=== PATIENT | male | born 1985 | race Caucasian/White ===

== ENCOUNTER → 2019-10-11 10:42 | Outpatient (BNVA) | payer SELFPAY | PROVIDERS: Family Provider Nurse Practitioner; PCP Nurse Practitioner; Visit Provider Nurse Practitioner Family | DX: R05 Cough (principal); J01.40 Acute pansinusitis, unspecified; J40 Bronchitis, not specified as acute or chronic | CPT/HCPCS: 87804 ==

== ENCOUNTER → 2019-11-29 10:57 | Outpatient (BNVA) | payer SELFPAY | PROVIDERS: Family Provider Nurse Practitioner; PCP Nurse Practitioner; Visit Provider Nurse Practitioner Family | DX: S50.10XA Contusion of unspecified forearm, initial encounter (principal) | CPT/HCPCS: 73090 ==

== ENCOUNTER 2019-12-21 18:06 | Emergency (ER) | payer SELFPAY ==
[2019-12-21 18:34] VITALS: BP 116/68; PULSE 69; RESP 14; TEMP 36.5; O2SAT 98; BMI 24.9
--- NOTE | 2019-12-21 18:55 | XR_ITS ---
WS: [id number] FOOT LEFT TECHNIQUE: 3 views of the left foot CLINICAL INFORMATION: injury COMPARISON: None. FINDINGS: No evidence of acute fracture or dislocation. Normal tarsal metatarsal alignment. Normal calcaneus. N ormal visualized talar dome. No acute findings. XR/XR foot LT min 3V* [id number] IMPRESSION: Normal left foot.
--- NOTE | 2019-12-21 20:48 | ED_ITS ---
HPI - Extremity Problem General: Chief complaint: Extremity Injury, Lower Stated complaint: foot swollen Time Seen by Provider: 12/21/19 20:22 History of Present Illness: HPI Narrative: Patient is a 34-year-old gentleman presenting with left foot pain. He describes pain at the junction of where his toes meet his foot. He has pain with weightbearing and with movement of the toes. This is been going on pretty severely for about a week. He does a lot of standing and walking at work and did jump down from a piece of equipment the day before the pain started but says that is not really anything unusual for him to do. He feels like it swollen. Even with a lot of padding in his shoes or boots he still has significant pain with walking. He has some similar pain on the right foot but it is not nearly as severe. MD Complaint: joint pain Onset (ago): week(s) (1) Pain Consistency: constant Location: left Severity scale (1-10): 8 Quality: sharp Radiation: none Relieving factors: rest Exacerbating factors: weight bearing, walking and palpation Associated symptoms: Deny rash Review of Systems Musc: Reports: extremity pain; Denies: extremity swelling Skin/Breast: Denies: rash Neuro: Denies: numbness in extremities PFSH ED PFSH: Family History Other Cancer Heart disease Social History Smoking and tobacco status: never smoked Alcohol intake: current Alcohol intake frequency: few times a week Physical Exam Const: COMMON NORMALS: no acute distress, average body habitus and healthy appearing Neck/C-Spine: COMMON NORMALS: supple Resp: COMMON NORMALS: normal respiratory effort and No use of accessory muscles Cardio: COMMON NORMALS: regular rate RATE: regular rate PERIPHERAL PULSES: dorsalis pedis present (Left) Extremity: LEFT LOWER EXTREMITY: Yes foot & digits (Tenderness over the second and third metatarsal phalangeal joints. Tenderness both on the dorsal and plantar sides. No deformity, heat, erythema. Pain also with range of motion of the toes) Neuro: COMMON NORMALS: no sensory deficits noted Course ED course: Patient with foot pain. He was concerned about gout but I clinically do not think this is gout. Could be a Burrows's neuroma or arthritis in the joint. We will have him nonweightbearing, put him in an Ortho boot and have him follow-up with podiatry. Vital Signs: Vital signs: Vital Signs Temperature 97.7 F 12/21/19 18:34 Pulse Rate 69 12/21/19 18:34 Respiratory Rate 16 12/21/19 21:08 Blood Pressure 116/68 12/21/19 18:34 Pulse Oximetry 99 12/21/19 21:08 Discharge Plan Discharge Patient Disposition: Home, Self-Care Clinical Impression: Acute foot pain Qualifiers: Laterality: left Qualified Code(s): M79.672 - Pain in left foot Condition: Stable Prescriptions: No Action Multiple Vitamins Tablet 1 tab PO DAILY RF: 0 Tylenol 325 mg Tablet 325 mg PO QID PRN (Reason: Pain) RF: 0 Advil 200 mg Tablet 200 mg PO Q6H PRN (Reason: Pain) RF: 0 Discharge Orders: Discharge Order (Routine); Ordered 12/21/19 Ordered By: Rosa M Clinton Referrals: Kennedy Saeed DPM [Physician] - 4-7 days Deana Wakefield FNP [Primary Care Provider] - Discharge Diet: Usual diet Discharge Activity: Limit activity as instructed Patient Instructions: Arthralgia (ED) Activity Restrictions/Additional Instructions: Limit weight bearing on the affected foot. Follow up with Dr. Saeed for further evaluation and treatment. Stand Alone Forms: Work/School Release Discharge Date/Time: 12/21/19 21:11 Coding Level of Care Code ED Director [employer] Operations for Chg Fwd Exam Detailed
[2019-12-21 21:08] VITALS: RESP 16; O2SAT 99
--- NOTE | 2019-12-22 10:02 | DCPLANNER ---
care process manager had message to schedule a follow up appointment for patient with ortho. care process manager called the ortho clinic, spoke with Pat, gave clinic patients information. care process manager was told that patients information would be printed and reviewed. Clinic will call nurse case management and patient with appointment information.
--- NOTE | 2019-12-23 14:50 | DCPLANNER ---
Addendum entered by Deloris Rasmussen 01/07/20 14:26: Patient attended appointment scheduled for 12.24.[address] Saeed. Original Note: Patient has a follow up appointment scheduled for Tuesday, December 24, 2019 at 3:[address] Saeed. Clinic will call patient with appointment information.
== END 2019-12-21 21:11 | disposition home or self-care (01) ==
PROVIDERS: Emergency Provider Emergency Medicine; PCP Nurse Practitioner
DX: M79.672 Pain in left foot (principal)
CPT/HCPCS: 12345; 73630; 99281; 99283

== ENCOUNTER → 2019-12-28 14:29 | Outpatient (BNVA) | payer SELFPAY | PROVIDERS: PCP Nurse Practitioner; Referring Provider Emergency Medicine; Visit Provider Podiatrist Foot & Ankle Surgery | DX: M79.671 Pain in right foot (principal); M79.672 Pain in left foot | CPT/HCPCS: 73630 ==

== ENCOUNTER 2020-02-08 16:11 | Emergency (ER) | payer SELFPAY ==
[2020-02-08 16:13] VITALS: BP 116/68; PULSE 58; RESP 18; TEMP 36.8; O2SAT 97; BMI 26.4
[2020-02-08 16:56] LABS: Basophils # 0.1 10^3/uL (0.0-0.1); Basophils % 0.6 %; Eosinophils # 0.4 10^3/uL (0.0-0.8); Eosinophils % 5.2 %; Hematocrit 44.5 % (42.0-52.0); Hemoglobin 14.6 g/dL (11.7-16.6); Lymphocytes # 2.3 10^3/uL (0.8-4.8); Lymphocytes % 28.3 %; Mean Corpuscular HGB Conc 32.8 g/dL (30.0-36.0); Mean Corpuscular Hemoglobin 28.8 pg (28.0-34.0); Mean Corpuscular Volume 87.8 fL (80-94); Mean Platelet Volume 9.9 fL (7.4-10.4); Monocytes # 0.9 10^3/uL (0.2-0.9); Monocytes % 11.6 %; Neutrophils # 4.3 10^3/uL (1.8-7.7); Neutrophils % 53.6 %; Nucleated Red Blood Cells % 0 %; Platelet Count 315 10^3/cmm (130-400); Red Blood Count 5.07 10^6/uL (4.1-5.3); White Blood Count 8.1 10^3/uL (4.0-10.0)
[2020-02-08 17:03] VITALS: RESP 18
--- NOTE | 2020-02-08 17:16 | ED_ITS ---
HPI - General Adult General: Chief complaint: General Medical Stated complaint: Tired ALL THE TIME Time Seen by Provider: 02/08/20 16:42 Source: patient Mode of arrival: ambulatory Limitations: no limitations History of Present Illness: HPI narrative: Patient is a 34-year-old male who has a history of tickborne illness 1 year ago. He states that over the last week he has been having increasing weakness with just no energy. He feels like he did a year ago. He denies any recent tick bites. He denies any fever. He denies any pain anywhere. Onset (ago): week(s) Associated symptoms: Deny chest pain, dyspnea, nausea, rash or vomiting Review of Systems Const: Denies: fever(s), chills, body aches or change in appetite Eyes: Denies: blurry vision or eye discomfort ENMT: Denies: throat pain or dental pain Card: Denies: chest pain Resp: Denies: dyspnea GI: Denies: abdominal pain, nausea, vomiting or diarrhea : Denies: dysuria Musc: Denies: neck pain or back pain Skin/Breast: Denies: rash Neuro: Reports: weakness in extremities Psych: Denies: depression Jovani/Lymph: Denies: easy bruising All/Imm: Denies: urticaria PFSH ED PFSH: Family History Other Cancer Heart disease Social History Smoking and tobacco status: never smoked Alcohol intake: current Alcohol intake frequency: few times a week Physical Exam Const: COMMON NORMALS: no acute distress, patient oriented x3 and healthy appearing HENMT: COMMON NORMALS: normocephalic and atraumatic HEAD & SCALP: normocephalic and atraumatic Eye: COMMON NORMALS: Equal, round and reactive pupils present and EOMs intact bilaterally PUPIL: Yes Equal, round and reactive pupils present Neck/C-Spine: COMMON NORMALS: full ROM and supple Chest: COMMONS NORMALS: normal inspection of the chest and normal palpation of entire chest wall Resp: COMMON NORMALS: normal respiratory effort, No retractions, No use of accessory muscles and clear to auscultation bilaterally AUSCULTATION: clear to auscultation bilaterally Cardio: COMMON NORMALS: regular rate, regular rhythm and No murmurs present (Cardio) RATE: regular rate RHYTHM: regular rhythm GI: COMMON NORMALS: Normal to inspection, nondistended, normoactive bowel sounds present, Soft to palpation, non-tender and no masses PALPATION: Yes Soft to palpation Extremity: COMMON NORMALS: normal to inspection and full ROM Neuro: COMMON NORMALS: patient oriented x3, moves all extremities and no focal motor deficits Psych: COMMON NORMALS: mental status grossly normal, Normal thought process present and cooperative THOUGHT PROCESS: Normal thought process present Skin: COMMON NORMALS: no rashes or lesions noted and no wounds GENERAL SKIN EXAM: no rashes or lesions noted Course Vital Signs: Vital signs: Vital Signs Temperature 98.2 F 02/08/20 16:13 Pulse Rate 58 L 02/08/20 16:13 Respiratory Rate 18 02/08/20 17:03 Blood Pressure 116/68 02/08/20 16:13 Pulse Oximetry 97 02/08/20 16:13 MDM - General Adult MDM Narrative: Medical decision making narrative: Patient presents here with generalized weakness we will start him on doxycycline as he has sick fever in the past. Tick panel is pending. Lab work here is otherwise normal. Patient is stable for discharge and return if worsening. Lab Data: Labs: Lab Results 02/08/20 02/08/20 Range/Units 16:48 16:48 WBC 8.1 (4.0-10.0) 10^3/ uL RBC 5.07 (4.1-5.3) 10^6/u L Hgb 14.6 (11.7-16.6) g/dL Hct 44.5 (42.0-52.0) % MCV 87.8 (80-94) fL MCH 28.8 (28.0-34.0) pg MCHC 32.8 (30.0-36.0) g/dL RDW 13.0 (12.1-15.1) % Plt Count 315 (130-400) 10^3/c mm MPV 9.9 (7.4-10.4) fL Neut % (Auto) 53.6 % Lymph % (Auto) 28.3 % [place] % (Auto) 11.6 % Eos % (Auto) 5.2 % Baso % (Auto) 0.6 % Neut # (Auto) 4.3 (1.8-7.7) 10^3/u L Lymph # (Auto) 2.3 (0.8-4.8) 10^3/u L [place] # (Auto) 0.9 (0.2-0.9) 10^3/u L Eos # (Auto) 0.4 (0.0-0.8) 10^3/u L Baso # (Auto) 0.1 (0.0-0.1) 10^3/u L Nucleated RBC % (a uto) 0 % Nucleated RBCs # 0.0 /100WBC Sodium 139 (136-145) mmol/L Potassium 4.4 (3.5-5.1) mmol/L Chloride 104 (98-107) mmol/L Carbon Dioxide 25 (22-29) mmol/L Anion Gap 14.4 (5-19) BUN 14 (6-20) mg/dL Creatinine 0.9 (0.7-1.2) mg/dL GFR Calculation 97.8 (90-130) mL/min Glucose 92 (65-115) mg/dL Calculated Osmolal ity 284 L (285-295) mOsm/k g Calcium 9.5 (8.5-10.5) mg/dL Total Bilirubin 0.2 (0.15-1.2) mg/dL AST 24 (0-40) U/L ALT 27 (0-41) U/L Alkaline Phosphata se 62 (40-130) IU/L Total Protein 7.0 (6.6-8.7) g/dL Albumin 4.4 (3.5-5.2) g/dL Globulin 2.6 (1.3-4.6) g/dL TSH 1.66 (0.27-4.20) uIU/ mL Discharge Plan Discharge Patient Disposition: Home, Self-Care Clinical Impression: Weakness Condition: Stable Prescriptions: New doxycycline hyclate 100 mg capsule 100 mg PO BID 14 Days Qty: 28 RF: 0 No Action multivitamin [Multiple Vitamins] Tablet 1 tab PO DAILY RF: 0 Discharge Orders: Discharge Order (Routine); Ordered 02/08/20 Ordered By: Justin Rudd Referrals: Deana Wakefield FNP [Primary Care Provider] - Discharge Diet: Advance as tolerated Discharge Activity: Resume usual activity Patient Instructions: Weakness (ED) Coding Level of Care Code ED Internal Medicine Veterinary Technician for g Fwd Exam Comprehensive
[2020-02-08 17:33] LABS: Alanine Aminotransferase 27 U/L (0-41); Albumin Level 4.4 g/dL (3.5-5.2); Alkaline Phosphatase 62 IU/L (40-130); Anion Gap 14.4 (5-19); Aspartate Amino Transferase 24 U/L (0-40); Blood Urea Nitrogen 14 mg/dL (6-20); Calcium 9.5 mg/dL (8.5-10.5); Carbon Dioxide 25 mmol/L (22-29); Chloride 104 mmol/L (98-107); Globulin 2.6 g/dL (1.3-4.6); Glomerular Filtration Rate 97.8 mL/min (90-130); Glucose 92 mg/dL (65-115); Osmolality Calculated 284 mOsm/kg (285-295); Potassium 4.4 mmol/L (3.5-5.1); Sodium 139 mmol/L (136-145); Thyroid Stimulating Hormone 1.66 uIU/mL (0.27-4.20); Total Bilirubin 0.2 mg/dL (0.15-1.2)
[2020-02-08 18:19] VITALS: RESP 18; TEMP 36.8; O2SAT 97
[2020-02-10 12:55] LABS: Lyme AB Screen <0.90 index
[2020-02-12 17:26] LABS: RMSF IGG NOT DETECTED; RMSF IGM NOT DETECTED
[2020-02-12 22:40] LABS: E. Chaffeensis AB IGG <1:64; E. Chaffeensis AB IGM <1:20
== END 2020-02-08 18:20 | disposition home or self-care (01) ==
PROVIDERS: Emergency Provider Emergency Medicine; PCP Nurse Practitioner
DX: R53.1 Weakness (principal)
CPT/HCPCS: 12345; 36415; 80053; 84443; 85025; 86618; 86666; 86757; 99281; 99282

== ENCOUNTER 2020-02-28 10:26 | Emergency (ER) | payer SELFPAY ==
[2020-02-28 10:29] VITALS: BP 153/78; PULSE 79; RESP 20; O2SAT 99; BMI 25.0
--- NOTE | 2020-02-28 10:56 | W.ED.NECK ---
HPI - Neck Pain/Injury General: Chief Complaint: Neck Pain/Injury Stated Complaint: NECK AND BACK PAIN, FACE IS NUMB Time Seen by Provider: 02/28/20 10:54 History of Present Illness: HPI Narrative: Patient is a 34-year-old male who comes to the ED with neck pain. Patient says he has had this pain for the past couple months and it continues to get worse. He says in the last couple days it is gotten considerably worse and he can hardly sleep. Today patient went to a chiropractor and got a treatment. After treatment patient's pain got worse. The pain is described as sharp pain on the cervical spine of the neck. He rates the pain currently about a 9 out of 10. Any pressure on the neck causes pain. He says he has pain that radiates down the left arm and he also has some left sided facial numbness that has been episodic over the past week.. He denies any head trauma or injury to cause acute neck pain. Denies weakness or loss of sensation to extremities. Associated symptoms: Reports nausea; Denies headache(s) Review of Systems Const: Denies: fever(s), chills or fatigue Eyes: Denies: change in vision or eye discomfort ENMT: Denies: throat pain, odynophagia, nasal discharge or nasal congestion Card: Denies: chest pain, palpitations, edema, swelling of feet/ankles, dyspnea on exertion or orthopnea Resp: Denies: dyspnea, productive cough or non-productive cough GI: Reports: nausea; Denies: abdominal pain, vomiting, diarrhea, constipation or hematochezia : Denies: flank pain, difficulty urinating, dysuria or hematuria Musc: Reports: neck pain; Denies: back pain or extremity swelling Skin/Breast: Denies: rash or new lesions Neuro: Reports: sensory changes (Patient states on left side of his face he is having some numbness.); Denies: headache(s), numbness in extremities or weakness in extremities PFSH ED PFSH: Family History Other Cancer Heart disease Social History Smoking and tobacco status: never smoked Alcohol intake: current Alcohol intake frequency: few times a week Physical Exam Const: COMMON NORMALS: no acute distress, patient oriented x3, healthy appearing and alert GENERAL APPEARANCE: cooperative and comfortable HENMT: COMMON NORMALS: normocephalic HEAD & SCALP: normocephalic MOUTH: Normal oral and palatal mucosa present THROAT: posterior oropharynx normal and uvula midline Eye: COMMON NORMALS: Equal, round and reactive pupils present PUPIL: Yes Equal, round and reactive pupils present Neck/C-Spine: COMMON NORMALS: supple GENERAL: Yes normal visual inspection CERVICAL SPINE: Yes pain with cervical ROM with anterior flexion and with extension, Yes Cervical spine tenderness C5, C6 and C7 and Yes Paracervical muscle tenderness bilateral Resp: COMMON NORMALS: normal respiratory effort, No retractions, No use of accessory muscles and clear to auscultation bilaterally AUSCULTATION: clear to auscultation bilaterally Cardio: COMMON NORMALS: regular rate, regular rhythm, S1 normal heart sound present, S2 normal heart sound present, No gallops present (Cardio), No clicks present (Cardio), No murmurs present (Cardio) and Peripheral pulses 2+ throughout RATE: regular rate RHYTHM: regular rhythm HEART SOUNDS: S1 normal heart sound present and S2 normal heart sound present PERIPHERAL PULSES: Peripheral pulses 2+ throughout GI: COMMON NORMALS: Normal to inspection, nondistended, normoactive bowel sounds present, Soft to palpation, non-tender and no masses PALPATION: Yes Soft to palpation : COMMON NORMALS: Yes no CVA tenderness BLADDER/KIDNEY EXAM: Yes no CVA tenderness Back/Pelvis: COMMON NORMALS: no CVA tenderness Extremity: COMMON NORMALS: normal to inspection and no pedal edema Neuro: COMMON NORMALS: patient oriented x3, moves all extremities, no focal motor deficits and gait normal SENSORIUM/ORIENTATION: Yes alert CRANIAL NERVES: Yes CN normal except as noted and Yes CN V (trigeminal) CN V laterality: left CN V left: all branch sensations abnormal (Change in sensation to soft touch.) COORDINATION/BALANCE: [id number] test normal GAIT: Yes Normal gait present COORDINATION: [id number] test normal Skin: COMMON NORMALS: no rashes or lesions noted GENERAL SKIN EXAM: no rashes or lesions noted and dry skin Course Vital Signs: Vital signs: Vital Signs Pulse Rate 50 L 02/28/20 13:36 Respiratory Rate 18 02/28/20 13:36 Blood Pressure 112/73 02/28/20 13:36 Pulse Oximetry 98 02/28/20 13:36 MDM - Neck Pain/Injury MDM Narrative: Medical decision making narrative: Patient is a 34-year-old male who comes to the ED with cervical neck pain with radiating pain down left arm. He is also complaining of episodic left sided facial numbness. His symptoms started over a week ago. Neurological exam was completely normal except for patient stating he had a change in sensation on left side of face to soft touch. Patient had pain upon anterior extension of flexion of cervical spine and also had cervical spine tenderness and bilateral paracervical muscle tenderness. CT of the head was normal and showed no acute findings. CT of the cervical spine- Mild disc bulging C5-C6 with a tiny shallow central protrusion. Slight effacement of ventral thecal sac. Mild left foraminal narrowing. Patient's pain improved with hydrocodone and Toradol while here in the ED. Patient was discharged with a prescription of ibuprofen and Medrol Dosepak. Patient also was requesting PCP referral so I placed an order with case management for the referral. Patient given return to ED precautions. Patient understood and agreed with plan. Imaging Data^: CT Head: Attestation: I personally reviewed and interpreted this imaging study as follows: Radiologist's impression: [address] [place] [address] CT Scan Report Signed Patient: Wu Brown Unit #: [id number] : 1985 Age/Sex: 34 / M ADM Date: 02/28/20 Loc: ER Room/Bed: Attending Dr: Ordering Provider/Ordering MD: Jace Newton Date of Service: 02/28/20 Procedure(s): CT head wo con* [id number] Accession Number(s): [id number] Report Number: [id number] WS: [id number] CT HEAD TECHNIQUE: Noncontrast CT of the head obtained from the skullbase to the vertex. CLINICAL INFORMATION: facial numbness COMPARISON: 14,014 DLP: 893.[address] scans at [facility] use at least one of these dose optimization techniques: automated exposure control; mA and/or kV adjustment per patient size (includes targeted exams where dose is matched to clinical indication); or iterative reconstruction. FINDINGS: No evidence of intracranial hemorrhage or mass effect. Ventricular system and basal cisterns are patent. No extra-axial fluid collections. No evidence of mass or mass effect. Normal pond-white differentiation. Incidental megacisterna magna unchanged. Paranasal sinuses and mastoid air cells are well aerated. .Normal visualized soft tissues. Notified LISE Buchanan at 02/28/2020 1:[address]/CT head wo con* [id number] IMPRESSION: 1. No evidence of intracranial hemorrhage or mass effect. 2. Normal pond-white differentiation. 3. Incidental megacisterna magna unchanged. 4. No acute intracranial findings. Dictated By: Warren Snowden MD Signed By: Warren Snowden MD Signed Date/Time: 02/28/20 1320 DD/ [address]: Attestation: I personally reviewed and interpreted this imaging study as follows: Radiologist's impression: [place] [address] CT Scan Report Signed Patient: Wu Brown Unit #: [id number] : 1985 Age/Sex: 34 / M ADM Date: 02/28/20 Loc: ER Room/Bed: Attending Dr: Ordering Provider/Ordering MD: Jace Newton Date of Service: 02/28/20 Procedure(s): CT cervical spin wo con* [id number] Accession Number(s): [id number] Report Number: [id number] WS: [id number] CT CERVICAL SPINE TECHNIQUE: Noncontrast CT of the cervical spine with coronal and sagittal reformatted images. CLINICAL INFORMATION: c-spine tender with pain radiating to left arm COMPARISON: None. DLP: 923.[address] scans at [facility] use at least one of these dose optimization techniques: automated exposure control; mA and/or kV adjustment per patient size (includes targeted exams where dose is matched to clinical indication); or iterative reconstruction. FINDINGS: Straightening of the normal cervical lordosis. No acute fractures. No high-grade central canal stenosis. C2-C3: Normal. C3-C4: Normal. C4-C5: Minimal disc bulging. Mild left and no significant right foraminal narrowing. Spinal canal is patent. C5-C6: Tiny central disc protrusion. Slight effacement of ventral thecal sac. Mild left foraminal narrowing. Mild facet arthropathy. C6-C7: Images this level somewhat degraded due to beam hardening artifact. Spinal canal and foramen appear patent. C7-T1: No significant disc bulging. Spinal canal and foramen are patent. Visualized posterior nasopharynx: Normal. Prevertebral soft tissues: Normal. Notified LISE Buchanan at 02/28/2020 1:[address]/CT cervical spin wo con* [id number] IMPRESSION: 1. Straightening of the normal cervical lordosis. No acute fractures. 2. Mild disc bulging C5-C6 with a tiny shallow central protrusion. Slight effacement of ventral thecal sac. Mild left foraminal narrowing. 3. No other acute findings. Dictated By: Warren Snowden MD Signed By: Warren Snowden MD Signed Date/Time: 02/28/20 132 DD/ 1320 Discharge Plan Discharge Patient Disposition: Home Clinical Impression: Cervical radicular pain Condition: Stable Prescriptions: New Medrol (Vern) 4 mg tablets,dose pack See Rx Instructions .ROUTE .COMPLEX Qty: 21 RF: 0 ibuprofen 600 mg tablet 600 mg PO Q8H PRN (Reason: pain) Qty: 30 RF: 0 No Action multivitamin [Multiple Vitamins] Tablet 1 tab PO DAILY RF: 0 Discharge Orders: Discharge Order (Routine); Ordered 02/28/20 Ordered By: Jace Newton Referrals: Deana Wakefield FNP [Primary Care Provider] - Discharge Diet: Regular Discharge Activity: Increase activity as tolerated Patient Instructions: Cervical Radiculopathy (ED) Activity Restrictions/Additional Instructions: Follow-up with medical provider as directed. Case management or PCP office should be contacting you in the next several days to set up an appointment. Take medications as prescribed. Apply ice on neck to help with symptoms. Return to the ER or your medical provider if condition worsens. Please read and understand discharge instructions. If any questions, please ask. Discharge Date/Time: 02/28/20 13:36 Coding Level of Care Code ED Pathology Transcriptionist for Chg Fwd Exam Comprehensive
--- NOTE | 2020-02-28 11:31 | CT_ITS ---
WS: [id number] CT CERVICAL SPINE TECHNIQUE: Noncontrast CT of the cervical spine with coronal and sagittal reformatted images. CLINICAL INFORMATION: c-spine tender with pain radiating to left arm COMPARISON: None. DLP: 923.[address] scans at [facility] use at least one of these dose optimization techniques: automat ed exposure control; mA and/or kV adjustment per patient size (includes targeted exams where dose is matched to clinical indication); or iterative reconstruction. FINDINGS: Straightening of the normal cervical lordosis. No acute fractures. No high-grade central canal stenos is. C2-C3: Normal. C3-C4: Normal. C4-C5: Minimal disc bulging. Mild left and no significant right foraminal narrowing. Spinal canal is patent. C5-C6: Tiny central disc protrusion. Slight effacement of ventral thecal sac. Mild left foraminal byron rowing. Mild facet arthropathy. C6-C7: Images this level somewhat degraded due to beam hardening artifact. Spinal canal and foramen a ppear patent. C7-T1: No significant disc bulging. Spinal canal and foramen are patent. Visualized posterior nasopharynx: Normal. Prevertebral soft tissues: Normal. Notified LISE Buchanan at 02/28/2020 1:[address]/CT cervical spin wo con* [id number] IMPRESSION: 1. Straightening of the normal cervical lordosis. No acute fractures. 2. Mild disc bulging C5-C6 with a tiny shallow central protrusion. Slight effa cement of ventral thecal sac. Mild left foraminal narrowing. 3. No other acute findings.
[2020-02-28 11:33] VITALS: BP 127/77; PULSE 67; RESP 14; O2SAT 96
[2020-02-28] MEDS: ketorolac 60 mg/2 mL INJ IM (11:37)
[2020-02-28] MEDS: HYDROcodone-acetaminophen 7.5-325 mg Tablet 1 TAB PO (11:37)
--- NOTE | 2020-02-28 11:40 | CT_ITS ---
WS: [id number] CT HEAD TECHNIQUE: Noncontrast CT of the head obtained from the skullbase to the vertex. CLINICAL INFORMATION: facial numbness COMPARISON: 6 14,014 DLP: 893.[address] scans at [facility] use at least one of these dose optimization techniques: automat ed exposure control; mA and/or kV adjustment per patient size (includes targeted exams where dose is matched to clinical indication); or iterative reconstruction. FINDINGS: No evidence of intracranial hemorrhage or mass effect. Ventricular system and basal cisterns are sosa nt. No extra-axial fluid collections. No evidence of mass or mass effect. Normal pond-white different iation. Incidental megacisterna magna unchanged. Paranasal sinuses and mastoid air cells are well aerated. .Normal visualized soft tissues. Notified LISE Buchanan at 02/28/2020 1:[address]/CT head wo con* [id number] IMPRESSION: 1. No evidence of intracranial hemorrhage or mass effect. 2. Normal pond-white differentiation. 3. Incidental megacisterna magna unchanged. 4. No acute intracranial findings.
[2020-02-28 13:00] VITALS: RESP 18
[2020-02-28 13:35] VITALS: RESP 18
[2020-02-28] MEDS: ondansetron 2 mg/ML SDV 2 mL 4 MG IM (13:35)
[2020-02-28] MEDS: predniSONE 20 mg Tablet 60 MG PO (13:35)
[2020-02-28] MEDS: morphine 4 mg/mL SDV 1 mL IM (13:35)
[2020-02-28 13:36] VITALS: BP 112/73; PULSE 50; RESP 18; O2SAT 98
--- NOTE | 2020-02-28 15:16 | PC.SOCIAL ---
Referral for PCP received from ED provider. Called patient and he is okay with C provider did not have a preference. Called Dr Willett office and appt scheduled for 03/23/2020 1:30pm. Updated patient and he prefers this nurse send date/ time of appt with phone number in the mail along with financial assistance paperwork. On paper that has appt asked that he call clinic prior to appt to see if her clinic location has changed since this will happen in the near future.
--- NOTE | 2020-05-04 16:15 | DCPLANNER ---
Patient had a follow up appointment scheduled for 03.23.20 - patient did not attend appointment.
== END 2020-02-28 13:36 | disposition home or self-care (01) ==
PROVIDERS: Emergency Provider Physician Assistant; PCP Nurse Practitioner
DX: M54.12 Radiculopathy, cervical region (principal)
CPT/HCPCS: 12345; 70450; 72125; 96372; 99281; 99283; J1885; J2270; J2405; J7512

== ENCOUNTER 2020-03-06 05:15 | Emergency (ER) | payer SELFPAY ==
[2020-03-06] VITALS (8 sets, daily range): BP systolic 106–138; BP diastolic 60–86; PULSE 43–72; RESP 12–24; TEMP 36.6; O2SAT 96–99; BMI 25.0
--- NOTE | 2020-03-06 05:58 | W.ED.ABDPA2 ---
HPI - Abdominal Pain General: Chief Complaint: Abdominal Pain Stated Complaint: abd pain Time Seen by Provider: 03/06/20 05:54 History of Present Illness: HPI narrative: 34-year-old male with complaint of abdominal pain began last night. Patient has severe epigastric pain he is not had any hematemesis. He does have blood in his stools but that is been ongoing problems small streaks of blood he has had this for a year, he has been evaluated for by physician. To be from rectal irritation or tears he has not had a colonoscopy for this. He does have history of severe heartburn he is on omeprazole but states that does not adequately control his symptoms. He has not had an EGD or further evaluation of his reflux in the past. No previous abdominal surgeries. MD elicited complaint: abdominal pain Pertinent past history: other (Gastroesophageal reflux disease) Onset (ago): hour(s) Pain Consistency: constant Location: Epigastric Severity: severe Quality: cramping and aching Radiation: none Migration to: no migration Exacerbating factors: eating Relieving factors: nothing Associated Symptoms: Reports change in stool character (Patient reports recent onset of mucousy semi-formed stool), GI cramping, dyspepsia, heartburn, hematochezia (Small streaks this is chronic), nausea and poor appetite; Denies coffee ground emesis, diarrhea, dysuria, fever(s), hematuria, hematemesis, melena, syncope and vomiting Treatments prior to arrival: other (Omeprazole) Review of Systems Const: Denies: fever(s) ENMT: Denies: throat pain, ear or mastoid pain, nasal discharge or nasal congestion Card: Denies: syncope Resp: Denies: dyspnea, productive cough or non-productive cough GI: Reports: nausea, heartburn, GI cramping, change in stool character (Patient reports recent onset of mucousy semi-formed stool) and hematochezia (Small streaks this is chronic); Denies: vomiting, hematemesis, coffee ground emesis, diarrhea or melena : Denies: dysuria or hematuria Skin/Breast: Denies: rash or pruritus PFSH ED PFSH: Medical History Asthma Cervical radicular pain Surgical History History of surgery on extremity History of surgery on upper extremity Family History Other Cancer Heart disease Social History Smoking and tobacco status: current every day smoker cigarettes Packs smoked per day: 1.5 Years cigarettes smoked: 14 Alcohol intake: current Alcohol intake frequency: few times a week Physical Exam Const: COMMON NORMALS: no acute distress GENERAL APPEARANCE: cooperative and comfortable ORIENTATION/CONSCIOUSNESS: Yes awake, Yes oriented to person, Yes oriented to place and Yes oriented to time HENMT: COMMON NORMALS: normocephalic and atraumatic HEAD & SCALP: normocephalic and atraumatic Eye: COMMON NORMALS: Equal, round and reactive pupils present, EOMs intact bilaterally, conjunctivae normal and no scleral icterus CONJUNCTIVA: Yes conjunctivae normal PUPIL: Yes Equal, round and reactive pupils present Neck/C-Spine: COMMON NORMALS: full ROM, no lymphadenopathy, supple and no JVD Lymph: LYMPHATIC: no lymphadenopathy noted and no lymphedema noted Resp: COMMON NORMALS: normal respiratory effort, No retractions, No use of accessory muscles and clear to auscultation bilaterally AUSCULTATION: clear to auscultation bilaterally Cardio: COMMON NORMALS: no JVD, regular rate, regular rhythm and No murmurs present (Cardio) RATE: regular rate RHYTHM: regular rhythm GI: COMMON NORMALS: No hepatosplenomegaly present AUSCULTATION: Yes normoactive bowel sounds PALPATION: Yes Tenderness to palpation present (GI) (Epigastric), No Guarding due to palpation present (GI), No Rigid due to palpation and Yes No hepatosplenomegaly present Extremity: COMMON NORMALS: normal to inspection, capillary refill normal, no clubbing, cyanosis or edema, no calf tenderness and no pedal edema Neuro: SENSORIUM/ORIENTATION: Yes oriented to person, Yes oriented to place and Yes oriented to time Skin: COMMON NORMALS: no rashes or lesions noted GENERAL SKIN EXAM: no rashes or lesions noted Course Vital Signs: Vital signs: Vital Signs Temperature 97.9 F 03/06/20 05:38 Pulse Rate 52 L 03/06/20 08:47 Respiratory Rate 16 03/06/20 08:47 Blood Pressure 106/64 03/06/20 08:47 Pulse Oximetry 98 03/06/20 08:47 MDM - Abdominal Pain MDM Narrative: Medical decision making narrative: White count is only [address] is unremarkable urine normal. He did get significant relief from the GI cocktail. Will change him to pantoprazole bland diet and referral to surgery for possible EGD follow-up with his primary care doctor Lab Data: Labs: Lab Results 03/06/20 03/06/20 03/06/20 Range/Units 06:09 06:09 06:20 WBC 10.3 H (4.0-10.0) 10^3/ uL RBC 5.27 (4.1-5.3) 10^6/u L Hgb 15.3 (11.7-16.6) g/dL Hct 46.4 (42.0-52.0) % MCV 88.0 (80-94) fL MCH 29.0 (28.0-34.0) pg MCHC 33.0 (30.0-36.0) g/dL RDW 12.8 (12.1-15.1) % Plt Count 332 (130-400) 10^3/c mm MPV 9.9 (7.4-10.4) fL Neut % (Auto) 74.5 % Lymph % (Auto) 17.9 % [place] % (Auto) 5.1 % Eos % (Auto) 1.3 % Baso % (Auto) 0.4 % Neut # (Auto) 7.66 (1.8-7.7) 10^3/u L Lymph # (Auto) 1.8 (0.8-4.8) 10^3/u L [place] # (Auto) 0.5 (0.2-0.9) 10^3/u L Eos # (Auto) 0.1 (0.0-0.8) 10^3/u L Baso # (Auto) 0.0 (0.0-0.1) 10^3/u L Nucleated RBC % (a uto) 0 % Nucleated RBCs # 0.0 /100WBC Sodium 135 L (136-145) mmol/L Potassium 4.8 (3.5-5.1) mmol/L Chloride 103 (98-107) mmol/L Carbon Dioxide 23 (22-29) mmol/L Anion Gap 13.8 (5-19) BUN 14 (6-20) mg/dL Creatinine 0.9 (0.7-1.2) mg/dL GFR Calculation 97.8 (90-130) mL/min Glucose 122 H (65-115) mg/dL Calculated Osmolal ity 278 L (285-295) mOsm/k g Calcium 9.2 (8.5-10.5) mg/dL Total Bilirubin 0.2 (0.15-1.2) mg/dL AST 17 (0-40) U/L ALT 14 (0-41) U/L Alkaline Phosphata se 56 (40-130) IU/L Total Protein 7.2 (6.6-8.7) g/dL Albumin 4.9 (3.5-5.2) g/dL Globulin 2.3 (1.3-4.6) g/dL Lipase 150 H (13-60) U/L Urine Color Straw (Yellow) Urine Appearance Clear (CLEAR) Urine pH 8.0 H (5-7) Ur Specific Gravit y 1.010 (1.005-1.030) Urine Protein Neg (Negative) Urine Glucose (UA) Norm (Normal) Urine Ketones Negative (Negative) Urine Blood Neg (Negative) Urine Nitrate Negative (Negative) Urine Bilirubin Neg (NEGATIVE) Prot Sulfosalicyli c Acd Negative (Negative) Urine Urobilinogen Norm (Negative) mg/dL Ur Leukocyte Dana ase Negative (Negative) Discharge Plan Discharge Patient Disposition: Home Clinical Impression: Dyspepsia Condition: Stable Prescriptions: New Protonix 40 mg tablet,delayed release (DR/EC) 40 mg PO BID 14 Days Qty: 28 RF: 0 Discontinued methylprednisolone [Medrol (Vern)] 4 mg tablets,dose pack See Rx Instructions .ROUTE .COMPLEX Qty: 21 RF: 0 ibuprofen 600 mg tablet 600 mg PO Q8H PRN (Reason: pain) Qty: 30 RF: 0 No Action multivitamin [Multiple Vitamins] Tablet 1 tab PO DAILY RF: 0 erythromycin 5 mg/gram (0.5 %) ointment 1 applic ophthalmic (eye) BID Qty: 3.5 RF: 0 Discharge Orders: Discharge Order (Routine); Ordered 03/06/20 Ordered By: Zacarias Severino Referrals: Haim Akins MD [Physician] - (Severe dyspepsia likely will need EGD) Discharge Diet: Clear Liquid Discharge Activity: Increase activity as tolerated Activity Restrictions/Additional Instructions: His management will call to referral to Dr. Akins for EGD Discharge Date/Time: 03/06/20 08:47 Coding Level of Care Code ED Navigating Officer for Chg Fwd Exam Comprehensive
[2020-03-06 06:22] LABS: Basophils % 0.4 %; Eosinophils # 0.1 10^3/uL (0.0-0.8); Eosinophils % 1.3 %; Hematocrit 46.4 % (42.0-52.0); Hemoglobin 15.3 g/dL (11.7-16.6); Lymphocytes # 1.8 10^3/uL (0.8-4.8); Lymphocytes % 17.9 %; Mean Platelet Volume 9.9 fL (7.4-10.4); Monocytes # 0.5 10^3/uL (0.2-0.9); Monocytes % 5.1 %; Neutrophils # 7.66 10^3/uL (1.8-7.7); Neutrophils % 74.5 %; Nucleated Red Blood Cells % 0 %; Platelet Count 332 10^3/cmm (130-400); Red Blood Count 5.27 10^6/uL (4.1-5.3); Red Cell Distribution Width 12.8 % (12.1-15.1); White Blood Count 10.3 10^3/uL (4.0-10.0)
[2020-03-06] MEDS: morphine 4 mg/mL SDV 1 mL IVP (06:22)
[2020-03-06] MEDS: ondansetron 2 mg/ML SDV 2 mL 4 MG IVP (06:22)
[2020-03-06] MEDS: sodium chloride 0.9% 1,000 ML 999 ML IV (06:22)
--- NOTE | 2020-03-06 06:31 | CTR_ITS ---
PROCEDURE INFORMATION: Exam: CT Abdomen And Pelvis With Contrast Exam date and time: 03/06/2020 6:31 AM Age: 34 years old Clinical indication: Abdominal pain; Prior surgery; Surgery type: Hip; Patient HX: Epigastric pain since last night; Additional info: Abd pain TECHNIQUE: Imaging protocol: Computed tomography of the abdomen and pelvis with intravenous contrast. Radiation optimization: All CT scans at this facility use at least one of these dose optimization techniques: automated exposure control; mA and/or kV adjustment per patient size (includes targeted exams where dose is matched to clinical indication); or iterative reconstruction. Contrast material: OMNI 300; Contrast volume: 95 ml; Contrast route: INTRAVENOUS (IV); COMPARISON: CT abdomen pelvis w con* [id number] 05/03/2018 8:48 PM RADIATION DOSE METRICS: Total DLP (mGy-cm): 759.27 FINDINGS: Lungs: Mild atelectasis at bilateral lung bases. Liver: Unremarkable. Gallbladder and bile ducts: Unremarkable. Pancreas: Unremarkable. Spleen: Unremarkable. Adrenals: Unremarkable. Kidneys and ureters: The kidneys are unremarkable. No renal stones identified. No hydronephrosis on either side. Stomach and bowel: No bowel obstruction identified. No diverticulitis identified. Appendix: A normal-appearing appendix is seen in the right lower quadrant. Intraperitoneal space: No free intraperitoneal air identified. No free intraperitoneal fluid identified. Vasculature: No abdominal aortic aneurysm. Lymph nodes: Unremarkable. Bladder: Unremarkable as visualized. Reproductive: Unremarkable as visualized. Bones/joints: Metallic hardware noted in the right femur. Soft tissues: Unremarkable. CT/CT abdomen pelvis w con* [id number] IMPRESSION: 1. No acute intra-abdominal/intrapelvic process identified. Radiation Dose CTDIVOL = (mGy): DLP = 759.27 (mGy-cm)
[2020-03-06 06:34] LABS: Add Urine Microscopic? NO
[2020-03-06] MEDS: lidocaine 2% viscous 15 ML, aluminum-mag hydrox-simethicon 30 ML, sucralfate oral liq 1 GM PO (06:34)
[2020-03-06 06:39] LABS: Alanine Aminotransferase 14 U/L (0-41); Albumin Level 4.9 g/dL (3.5-5.2); Alkaline Phosphatase 56 IU/L (40-130); Anion Gap 13.8 (5-19); Aspartate Amino Transferase 17 U/L (0-40); Blood Urea Nitrogen 14 mg/dL (6-20); Calcium 9.2 mg/dL (8.5-10.5); Carbon Dioxide 23 mmol/L (22-29); Chloride 103 mmol/L (98-107); Creatinine Clr Calc Pharmacy 137.3553; Globulin 2.3 g/dL (1.3-4.6); Glomerular Filtration Rate 97.8 mL/min (90-130); Glucose 122 mg/dL (65-115); Lipase 150 U/L (13-60); Osmolality Calculated 278 mOsm/kg (285-295); Potassium 4.8 mmol/L (3.5-5.1); Sodium 135 mmol/L (136-145); Total Bilirubin 0.2 mg/dL (0.15-1.2); Total Protein 7.2 g/dL (6.6-8.7)
[2020-03-06] MEDS: iohexol 300 mg/mL 100 mL Btl IV (06:44)
[2020-03-06 06:47] LABS: Bilirubin Urine Neg (NEGATIVE); Blood Urine Neg (Negative); Glucose Urine UA Norm (Normal); Ketones Urine Negative (Negative); Leukocyte Esterase Urine Negative (Negative); Nitrate Urine Negative (Negative); Protein Urine Neg (Negative); Sulfosalicylic Acid Urine Negative (Negative); Urine Appearance Clear (CLEAR); Urine Color Straw (Yellow); Urobilinogen Urine Norm (Negative)
--- NOTE | 2020-03-06 06:59 | PC.NURSE ---
Report received from RAJAN Lockett at this time.
--- NOTE | 2020-03-06 06:59 | PC.NURSE ---
REPORT GIVEN TO LIVIER BRICE RN FOR TRANSFER OF PT CARE.
--- NOTE | 2020-03-06 07:02 | PC.NURSE ---
This RN rounded on patient and introduced myself to the patient and visitor. No distress noted. Patient has no needs at this time. Will continue to monitor patient.
[2020-03-06] MEDS: pantoprazole 40 mg SDV 80 MG IVP (08:43)
--- NOTE | 2020-03-06 14:39 | PC.SOCIAL ---
Referral received for EGD with general surgery. Pt was scheduled to see Dr Akins on 03/13/2020 at 1pm. Notified patient of this appointment. He verbalized understanding.
--- NOTE | 2020-03-16 14:46 | DCPLANNER ---
Patient did not attend appointment scheduled for 03.13.20 with [facility].
== END 2020-03-06 08:47 | disposition home or self-care (01) ==
PROVIDERS: Emergency Provider Family Medicine
DX: R10.13 Epigastric pain (principal); F17.210 Nicotine dependence, cigarettes, uncomplicated
CPT/HCPCS: 12345; 74177; 80053; 81003; 83690; 85025; 96361; 96374; 96375; 99283; 99284; C9113; J2270; J2405; J7030; Q9967

== ENCOUNTER 2020-03-08 01:32 | Emergency (ER) | payer SELFPAY ==
[2020-03-08 01:40] VITALS: BP 127/92; PULSE 63; RESP 18; TEMP 36.1; O2SAT 97; BMI 25.0
[2020-03-08 01:45] VITALS: PULSE 68; RESP 18; O2SAT 98
[2020-03-08] MEDS: HYDROcodone-acetaminophen 7.5-325 mg Tablet 1 TAB PO ×2 (01:58→02:33)
[2020-03-08] MEDS: erythromycin Op Oint 1 gm 1 APPLIC EYE-BOTH (01:58)
--- NOTE | 2020-03-08 02:08 | ED_ITS ---
HPI - Eye Problem General: Chief complaint: Eye Problems Stated complaint: FLASHBURN IN EYES Time Seen by Provider: 03/08/20 01:52 History of Present Illness: HPI Narrative: Patient is a 34-year-old male who comes to the ED with bilateral eye pain. 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 He says that up but he was welding alongside with him and he thinks that when he would lift up his mask and take a break from welding some of his buddies welding arc cause flash ferrer in his eye. Patient says once they start hurting he flushed his eyes with cold water. He rates his eye pain a 10 out of 10 in it is hard for him to keep his eyes open. Denies any foreign body. Associated symptoms: Denies fever(s), headache(s), nausea, neck pain or vomiting Review of Systems Const: Denies: fever(s), chills or fatigue Eyes: Reports: photophobia, eye discomfort and eye redness; Denies: change in vision ENMT: Denies: throat pain, odynophagia, nasal discharge or nasal congestion Card: Denies: chest pain, palpitations, edema, swelling of feet/ankles, dyspnea on exertion or orthopnea Resp: Denies: dyspnea, productive cough or non-productive cough GI: Denies: abdominal pain, nausea, vomiting, diarrhea, constipation or hematochezia : Denies: flank pain, difficulty urinating, dysuria or hematuria Musc: Denies: neck pain, back pain or extremity swelling Skin/Breast: Denies: rash or new lesions Neuro: Denies: headache(s), numbness in extremities or weakness in extremities PFSH ED PFSH: Medical History Asthma Cervical radicular pain Surgical History History of surgery on extremity History of surgery on upper extremity Family History Other Cancer Heart disease Social History Smoking and tobacco status: current every day smoker cigarettes Packs smoked per day: 1.5 Years cigarettes smoked: 14 Alcohol intake: current Alcohol intake frequency: few times a week Physical Exam Const: COMMON NORMALS: patient oriented x3 and alert GENERAL APPEARANCE: cooperative; not comfortable (Patient is uncomfortable due to eye irritation.) HENMT: COMMON NORMALS: normocephalic HEAD & SCALP: normocephalic MOUTH: Normal oral and palatal mucosa present THROAT: posterior oropharynx normal and uvula midline Eye: COMMON NORMALS: Equal, round and reactive pupils present and EOMs intact bilaterally CONJUNCTIVA: Yes conjunctival abnormal positive bilateral conjunctival injection PUPIL: Yes Equal, round and reactive pupils present Neck/C-Spine: COMMON NORMALS: supple GENERAL: Yes normal visual inspection Resp: COMMON NORMALS: normal respiratory effort, No retractions, No use of accessory muscles and clear to auscultation bilaterally AUSCULTATION: clear to auscultation bilaterally Cardio: COMMON NORMALS: regular rate, regular rhythm, S1 normal heart sound present, S2 normal heart sound present, No gallops present (Cardio), No clicks present (Cardio), No murmurs present (Cardio) and Peripheral pulses 2+ throughout RATE: regular rate RHYTHM: regular rhythm HEART SOUNDS: S1 normal heart sound present and S2 normal heart sound present PERIPHERAL PULSES: Peripheral pulses 2+ throughout GI: COMMON NORMALS: Normal to inspection, nondistended, normoactive bowel sounds present, Soft to palpation, non-tender and no masses PALPATION: Yes So ft to palpation : COMMON NORMALS: Yes no CVA tenderness BLADDER/KIDNEY EXAM: Yes no CVA tenderness Back/Pelvis: COMMON NORMALS: no CVA tenderness Extremity: COMMON NORMALS: normal to inspection Neuro: COMMON NORMALS: patient oriented x3 and moves all extremities SENSORIUM/ORIENTATION: Yes alert Skin: COMMON NORMALS: no rashes or lesions noted GENERAL SKIN EXAM: no rashes or lesions noted and dry skin Course Vital Signs: Vital signs: Vital Signs Temperature 96.9 F L 03/08/20 01:40 Pulse Rate 68 03/08/20 01:45 Respiratory Rate 18 03/08/20 02:35 Blood Pressure 127/92 03/08/20 01:40 Pulse Oximetry 98 03/08/20 01:45 MDM - Eye Problem MDM Narrative: Medical decision making narrative: Patient is a 34-year-old male who comes to the ED with bilateral eye pain after welding. Patient was wearing protective eyewear but says he had a friend welding next to him as well and states that when he would take a break and lift his mask his friend was still welding and he thinks he got Welders flash from that. Denies any foreign body sensation. Exam shows red eyes with photophobia with ocular movements intact and pupils are equal round and reactive. Patient discharged and diagnosed with Welders flash. Patient given dose of hydrocodone and erythromycin ointment while here in the ED. Patient was given a prescription of hydrocodone for pain and erythromycin eye ointment. Patient was given contact information for [facility] and told to contact them tomorrow to set up an appointment for reevaluation. Return to ED precautions given. Patient understood and agreed with plan. Discharge Plan Discharge Patient Disposition: Home Clinical Impression: Welders' flash Qualifiers: Laterality: bilateral Qualified Code(s): H16.133 - Photokeratitis, bilateral Condition: Stable Prescriptions: New erythromycin 5 mg/gram (0.5 %) ointment 1 applic ophthalmic (eye) BID Qty: 3.5 RF: 0 No Action multivitamin [Multiple Vitamins] Tablet 1 tab PO DAILY RF: 0 Protonix 40 mg tablet,delayed release (DR/EC) 40 mg PO BID 14 Days Qty: 28 RF: 0 Discharge Orders: Discharge Order (Routine); Ordered 03/08/20 Ordered By: Jace Newton Discharge Diet: Regular Discharge Activity: Increase activity as tolerated Patient Instructions: Corneal Flash Ferrer (ED) Activity Restrictions/Additional Instructions: Follow-up with medical provider as directed. Call [facility] tomorrow to set up an appointment for reevaluation. Contact number for [facility] is [phone]. Address is [facility] Doctors MARY Palomares take medications as prescribed. Return to the ER or your medical provider if condition worsens. Please read and understand discharge instructions. If any questions, please ask. Discharge Date/Time: 03/08/20 02:33 Coding Level of Care Code ED Structural Fitter for [place] Exam Comprehensive
[2020-03-08 02:35] VITALS: RESP 18
== END 2020-03-08 02:33 | disposition home or self-care (01) ==
PROVIDERS: Emergency Provider Physician Assistant
DX: H16.133 Photokeratitis, bilateral (principal); W89.8XXA Exposure to other man-made visible and ultraviolet light, initial encounter; F17.210 Nicotine dependence, cigarettes, uncomplicated
CPT/HCPCS: 12345; 99281; 99283

== ENCOUNTER 2020-05-15 07:38 | Emergency (ER) | payer SELFPAY ==
[2020-05-15 07:39] VITALS: BP 147/95; PULSE 82; RESP 18; TEMP 36.5; O2SAT 98; BMI 24.4
--- NOTE | 2020-05-15 07:50 | ECG_ITS ---
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 Measurements Intervals [place] Rate: 92 P: 55 TX: 140 QRS: 69 QRSD: 93 T: 44 QT: 334 QTc: 413 Interpretive Statements SINUS RHYTHM WITH SINUS ARRHYTHMIA No previous ECG available for comparison Electronically Signed On 05-15-2020 19:54:17 CDT by Mira Burks M.D. [id number]
--- NOTE | 2020-05-15 07:50 | XR_ITS ---
WS: [id number] PORTABLE CHEST HISTORY: chest pain COMPARISON: 05/03/2018 Lungs are clear and well expanded. No pleural effusion or pneumothorax. Cardiac size: Normal. Mediastinum/Aorta: Normal mediastinum. No osseous abnormality seen. XR/XR chest 1V portable [id number] IMPRESSION: Unremarkable portable chest.
[2020-05-15 08:01] LABS: Basophils % 0.4 %; Eosinophils # 0.3 10^3/uL (0.0-0.8); Eosinophils % 3.6 %; Hematocrit 49.1 % (42.0-52.0); Hemoglobin 16.3 g/dL (11.7-16.6); Lymphocytes # 3.1 10^3/uL (0.8-4.8); Lymphocytes % 34.5 %; Mean Corpuscular HGB Conc 33.2 g/dL (30.0-36.0); Mean Corpuscular Hemoglobin 29.3 pg (28.0-34.0); Mean Corpuscular Volume 88.2 fL (80-94); Mean Platelet Volume 9.9 fL (7.4-10.4); Monocytes # 0.9 10^3/uL (0.2-0.9); Monocytes % 9.8 %; Neutrophils # 4.55 10^3/uL (1.8-7.7); Neutrophils % 51.1 %; Nucleated Red Blood Cells % 0 %; Platelet Count 314 10^3/cmm (130-400); Red Blood Count 5.57 10^6/uL (4.1-5.3); Red Cell Distribution Width 12.7 % (12.1-15.1); White Blood Count 8.9 10^3/uL (4.0-10.0)
--- NOTE | 2020-05-15 08:23 | ED_ITS ---
HPI - Chest Pain General: Chief Complaint: Chest Pain Stated Complaint: Chest Pain Time Seen by Provider: 05/15/20 07:50 History of Present Illness: HPI narrative: 34-year-old male complains of left- sided chest pain worsening takes a deep breath and came in to see the patient he is hyperventilating. He does not have any radiation of the pain into the neck arm or back. He was scheduled for a EGD but it was delayed due to a change in schedule and the surgeon. He denies any hematemesis coffee-ground emesis no fever. He has had some loose stools as well as a nonproductive cough. He is a smoker. MD complaint: chest pain Onset (ago): hour(s) Timing of current episode: constant and still present Onset: during rest Pain location: left chest Pain radiation: none Severity: severe Quality: tightness and heaviness Relieving factors: nothing Exacerbating factors: nothing Associated symptoms: Deny abdominal pain, diaphoresis, dyspnea, fever(s), leg edema, nausea, palpitations, sense of impending doom, syncope or vomiting Treatment prior to arrival: none Review of Systems Const: Denies: fever(s) or diaphoresis ENMT: Denies: throat pain, ear or mastoid pain, nasal discharge or nasal congestion Card: Denies: palpitations or syncope Resp: Denies: dyspnea GI: Denies: abdominal pain, nausea or vomiting : Denies: flank pain, dysuria, urinary frequency or urinary urgency Skin/Breast: Denies: rash or pruritus PFSH ED PFSH: Medical History Asthma Cervical radicular pain Surgical History History of surgery on extremity History of surgery on upper extremity Family History Other Cancer Heart disease Social History Smoking and tobacco status: current every day smoker cigarettes Packs smoked per day: 1.5 Years cigarettes smoked: 14 Alcohol intake: current Alcohol intake frequency: few times a week Physical Exam Const: COMMON NORMALS: no acute distress GENERAL APPEARANCE: cooperative and comfortable ORIENTATION/CONSCIOUSNESS: Yes awake, Yes oriented to person, Yes oriented to place and Yes oriented to time HENMT: COMMON NORMALS: normocephalic, atraumatic and hearing grossly normal bilaterally HEAD & SCALP: normocephalic and atraumatic Eye: COMMON NORMALS: Equal, round and reactive pupils present, EOMs intact bilaterally, conjunctivae normal and no scleral icterus CONJUNCTIVA: Yes conjunctivae normal PUPIL: Yes Equal, round and reactive pupils present Neck/C-Spine: COMMON NORMALS: full ROM, no lymphadenopathy, supple and no JVD Lymph: LYMPHATIC: no lymphadenopathy noted and no lymphedema noted Resp: COMMON NORMALS: normal respiratory effort, No retractions, No use of accessory muscles and clear to auscultation bilaterally AUSCULTATION: clear to auscultation bilaterally Cardio: COMMON NORMALS: no JVD, regular rate, regular rhythm and No murmurs present (Cardio) RATE: regular rate RHYTHM: regular rhythm GI: COMMON NORMALS: Soft to palpation and No hepatosplenomegaly present AUSCULTATION: Yes normoactive bowel sounds PALPATION: Yes Soft to palpation, No Tenderness to palpation present (GI), No Guarding due to palpation present (GI) and Yes No hepatosplenomegaly present Extremity: COMMON NORMALS: normal to inspection, capillary refill normal, no clubbing, cyanosis or edema, no calf tenderness and no pedal edema Neuro: SENSORIUM/ORIENTATION: Yes oriented to person, Yes oriented to place and Yes oriented to time Skin: COMMON NORMALS: no rashes or lesions noted GENERAL SKIN EXAM: no rashes or lesions noted Course Vital Signs: Vital signs: Vital Signs Temperature 97.7 F 05/15/20 07:39 Pulse Rate 82 05/15/20 07:39 Respiratory Rate 18 05/15/20 07:39 Blood Pressure 147/95 05/15/20 07:39 Pulse Oximetry 98 05/15/20 07:39 MDM - Chest Pain MDM Narrative: Medical decision making narrative: Reviewed findings with the patient. CT unremarkable. Labs unremarkable his antigen test is negative we will discharge him home starting back on pantoprazole off case management work on getting him set back up with Dr. Akins again to get an EGD suspect his chest pain is secondary to GI causes. Lab Data: Labs: Lab Results 05/15/20 05/15/20 05/15/20 Range/Units 07:55 07:55 07:55 WBC 8.9 (4.0-10.0) 10^3/ uL RBC 5.57 H (4.1-5.3) 10^6/u L Hgb 16.3 (11.7-16.6) g/dL Hct 49.1 (42.0-52.0) % MCV 88.2 (80-94) fL MCH 29.3 (28.0-34.0) pg MCHC 33.2 (30.0-36.0) g/dL RDW 12.7 (12.1-15.1) % Plt Count 314 (130-400) 10^3/c mm MPV 9.9 (7.4-10.4) fL Neut % (Auto) 51.1 % Lymph % (Auto) 34.5 % [place] % (Auto) 9.8 % Eos % (Auto) 3.6 % Baso % (Auto) 0.4 % Neut # (Auto) 4.55 (1.8-7.7) 10^3/u L Lymph # (Auto) 3.1 (0.8-4.8) 10^3/u L [place] # (Auto) 0.9 (0.2-0.9) 10^3/u L Eos # (Auto) 0.3 (0.0-0.8) 10^3/u L Baso # (Auto) 0.0 (0.0-0.1) 10^3/u L Nucleated RBC % (a uto) 0 % Nucleated RBCs # 0.0 /100WBC D-Dimer <= 0.27 (0-0.59) ug/mIFE U Specimen Type Sample Site ABG pH (7.35-7.45) ABG pCO2 (35-45) mmHg ABG pO2 (80.0-100.0) mmH g ABG HCO3 (22-26) mmol/L ABG O2 Saturation ABG Base Excess (-2.0-2.0) mmol/ L Zachary Test A-a O2 Gradient (5-10) mmHg Hematocrit (42-52) % Hgb O2 Saturation (95-100) % Carboxyhemoglobin (0.4-20.1) %THgb Methemoglobin (0.4-1.5) % Total Hemoglobin (14-18) g/dL Ionized Calcium (1.1-1.4) mmol/L Sugarcane Research Technician ID Sodium 142 (136-145) mmol/L Potassium 3.9 (3.5-5.1) mmol/L Chloride 104 (98-107) mmol/L Carbon Dioxide 17 L (22-29) mmol/L Anion Gap 24.9 H (5-19) BUN 8 (6-20) mg/dL Creatinine 1.1 (0.7-1.2) mg/dL GFR Calculation 77.6 L (90-130) mL/min Glucose 88 (65-115) mg/dL Calculated Osmolal ity 292 (285-295) mOsm/k g Calcium 10.0 (8.5-10.5) mg/dL Total Bilirubin 0.3 (0.15-1.2) mg/dL AST 20 (0-40) U/L ALT 19 (0-41) U/L Alkaline Phosphata se 78 (40-130) IU/L Creatine Kinase 106 (39-308) U/L Troponin T Baselin e (0-15) ng/L Troponin T 120 Min [place] (0-15) ng/L Delta Troponin T (0-10) ABS# Total Protein 7.5 (6.6-8.7) g/dL Albumin 5.1 (3.5-5.2) g/dL Globulin 2.4 (1.3-4.6) g/dL Urine Color (Yellow) Urine Appearance (CLEAR) Urine pH (5-7) Ur Specific Gravit y (1.005-1.030) Urine Protein (Negative) Urine Glucose (UA) (Normal) Urine Ketones (Negative) Urine Blood (Negative) Urine Nitrate (Negative) Urine Bilirubin (Negative) Urine Urobilinogen (Negative) mg/dL Ur Leukocyte Dana ase (Negative) Urine RBC (0-2) /hpf Urine WBC (0-5) /hpf Ur Squamous Epith Cells (0-5) /hpf Amorphous Sediment Urine Bacteria (NONE) /hpf Urine Mucus /hpf SARS-CoV-2 Ag (Rap id) 05/15/20 05/15/20 05/15/20 Range/Units 07:55 08:16 08:20 WBC (4.0-10.0) 10^3/ uL RBC (4.1-5.3) 10^6/u L Hgb (11.7-16.6) g/dL Hct (42.0-52.0) % MCV (80-94) fL MCH (28.0-34.0) pg MCHC (30.0-36.0) g/dL RDW (12.1-15.1) % Plt Count (130-400) 10^3/c mm MPV (7.4-10.4) fL Neut % (Auto) % Lymph % (Auto) % [place] % (Auto) % Eos % (Auto) % Baso % (Auto) % Neut # (Auto) (1.8-7.7) 10^3/u L Lymph # (Auto) (0.8-4.8) 10^3/u L [place] # (Auto) (0.2-0.9) 10^3/u L Eos # (Auto) (0.0-0.8) 10^3/u L Baso # (Auto) (0.0-0.1) 10^3/u L Nucleated RBC % (a uto) % Nucleated RBCs # /100WBC D-Dimer (0-0.59) ug/mIFE U Specimen Type Arterial Sample Site Brachial, left ABG pH 7.51 H (7.35-7.45) ABG pCO2 25.9 L (35-45) mmHg ABG pO2 70.9 L (80.0-100.0) mmH g ABG HCO3 20.5 L (22-26) mmol/L ABG O2 Saturation 97.0 ABG Base Excess -0.8 (-2.0-2.0) mmol/ L Zachary Test N/a A-a O2 Gradient 5.8 (5-10) mmHg Hematocrit 48.8 (42-52) % Hgb O2 Saturation 92.3 L (95-100) % Carboxyhemoglobin 4.2 (0.4-20.1) %THgb Methemoglobin 0.7 (0.4-1.5) % Total Hemoglobin 15.9 (14-18) g/dL Ionized Calcium 1.2 (1.1-1.4) mmol/L Sugarcane Research Technician ID Gd Sodium 142.0 (136-145) mmol/L Potassium 3.9 (3.5-5.1) mmol/L Chloride (98-107) mmol/L Carbon Dioxide (22-29) mmol/L Anion Gap (5-19) BUN (6-20) mg/dL Creatinine (0.7-1.2) mg/dL GFR Calculation (90-130) mL/min Glucose 98.0 (65-115) mg/dL Calculated Osmolal ity (285-295) mOsm/k g Calcium (8.5-10.5) mg/dL Total Bilirubin (0.15-1.2) mg/dL AST (0-40) U/L ALT (0-41) U/L Alkaline Phosphata se (40-130) IU/L Creatine Kinase (39-308) U/L Troponin T Baselin e 6 (0-15) ng/L Troponin T 120 Min [place] (0-15) ng/L Delta Troponin T (0-10) ABS# Total Protein (6.6-8.7) g/dL Albumin (3.5-5.2) g/dL Globulin (1.3-4.6) g/dL Urine Color Yellow (Yellow) Urine Appearance Clear (CLEAR) Urine pH 5 (5-7) Ur Specific Gravit y 1.010 (1.005-1.030) Urine Protein 1+ H (Negative) Urine Glucose (UA) Norm (Normal) Urine Ketones Negative (Negative) Urine Blood 3+ H (Negative) Urine Nitrate Negative (Negative) Urine Bilirubin Neg (Negative) Urine Urobilinogen 1 H (Negative) mg/dL Ur Leukocyte Dana ase Negative (Negative) Urine RBC 5-10 H (0-2) /hpf Urine WBC None (0-5) /hpf Ur Squamous Epith Cells None (0-5) /hpf Amorphous Sediment Not Reportable Urine Bacteria Trace (NONE) /hpf Urine Mucus 1+ /hpf SARS-CoV-2 Ag (Rap id) 05/15/20 05/15/20 05/15/20 Range/Units 08:20 09:44 10:16 WBC (4.0-10.0) 10^3/ uL RBC (4.1-5.3) 10^6/u L Hgb (11.7-16.6) g/dL Hct (42.0-52.0) % MCV (80-94) fL MCH (28.0-34.0) pg MCHC (30.0-36.0) g/dL RDW (12.1-15.1) % Plt Count (130-400) 10^3/c mm MPV (7.4-10.4) fL Neut % (Auto) % Lymph % (Auto) % [place] % (Auto) % Eos % (Auto) % Baso % (Auto) % Neut # (Auto) (1.8-7.7) 10^3/u L Lymph # (Auto) (0.8-4.8) 10^3/u L [place] # (Auto) (0.2-0.9) 10^3/u L Eos # (Auto) (0.0-0.8) 10^3/u L Baso # (Auto) (0.0-0.1) 10^3/u L Nucleated RBC % (a uto) % Nucleated RBCs # /100WBC D-Dimer (0-0.59) ug/mIFE U Specimen Type Sample Site ABG pH (7.35-7.45) ABG pCO2 (35-45) mmHg ABG pO2 (80.0-100.0) mmH g ABG HCO3 (22-26) mmol/L ABG O2 Saturation ABG Base Excess (-2.0-2.0) mmol/ L Zachary Test A-a O2 Gradient (5-10) mmHg Hematocrit (42-52) % Hgb O2 Saturation (95-100) % Carboxyhemoglobin (0.4-20.1) %THgb Methemoglobin (0.4-1.5) % Total Hemoglobin (14-18) g/dL Ionized Calcium (1.1-1.4) mmol/L Sugarcane Research Technician ID Sodium (136-145) mmol/L Potassium (3.5-5.1) mmol/L Chloride (98-107) mmol/L Carbon Dioxide (22-29) mmol/L Anion Gap (5-19) BUN (6-20) mg/dL Creatinine (0.7-1.2) mg/dL GFR Calculation (90-130) mL/min Glucose (65-115) mg/dL Calculated Osmolal ity (285-295) mOsm/k g Calcium (8.5-10.5) mg/dL Total Bilirubin (0.15-1.2) mg/dL AST (0-40) U/L ALT (0-41) U/L Alkaline Phosphata se (40-130) IU/L Creatine Kinase (39-308) U/L Troponin T Baselin e (0-15) ng/L Troponin T 120 Min [place] 6.00 (0-15) ng/L Delta Troponin T 0 (0-10) ABS# Total Protein (6.6-8.7) g/dL Albumin (3.5-5.2) g/dL Globulin (1.3-4.6) g/dL Urine Color (Yellow) Urine Appearance (CLEAR) Urine pH (5-7) Ur Specific Gravit y (1.005-1.030) Urine Protein (Negative) Urine Glucose (UA) (Normal) Urine Ketones (Negative) Urine Blood (Negative) Urine Nitrate (Negative) Urine Bilirubin (Negative) Urine Urobilinogen (Negative) mg/dL Ur Leukocyte Dana ase (Negative) Urine RBC (0-2) /hpf Urine WBC (0-5) /hpf Ur Squamous Epith Cells (0-5) /hpf Amorphous Sediment Urine Bacteria (NONE) /hpf Urine Mucus /hpf SARS-CoV-2 Ag (Rap id) Cancelled Negative Discharge Plan Discharge Patient Disposition: Home Clinical Impression: Chest pain due to gastrointestinal reflux disease Condition: Stable Prescriptions: New pantoprazole 40 mg tablet,delayed release (DR/EC) 40 mg PO DAILY 28 Days Qty: 28 RF: 0 No Action Ciprodex 0.3-0.1 % drops,suspension 4 drop EAR-BOTH Q12H 7 Days Qty: 7.5 RF: 0 amoxicillin 500 mg capsule 500 mg PO TID 10 Days Qty: 30 RF: 0 multivitamin [Multiple Vitamins] Tablet 1 tab PO DAILY RF: 0 Discharge Orders: Discharge Order (Routine); Ordered 05/15/20 Ordered By: Zacarias Severino Discharge Activity: Increase activity as tolerated Patient Instructions: Diet for Ulcers and Gastritis (ED) Activity Restrictions/Additional Instructions: [place] diet follow-up with general surgery as planned for EGD Coding Level of Care Code ED Animal Geneticist for Chg Fwd Exam Comprehensive
[2020-05-15 08:24] LABS: Alanine Aminotransferase 19 U/L (0-41); Albumin Level 5.1 g/dL (3.5-5.2); Alkaline Phosphatase 78 IU/L (40-130); Anion Gap 24.9 (5-19); Aspartate Amino Transferase 20 U/L (0-40); Blood Urea Nitrogen 8 mg/dL (6-20); Carbon Dioxide 17 mmol/L (22-29); Chloride 104 mmol/L (98-107); Creatine Phosphokinase 106 U/L (39-308); Globulin 2.4 g/dL (1.3-4.6); Glomerular Filtration Rate 77.6 mL/min (90-130); Glucose 88 mg/dL (65-115); Osmolality Calculated 292 mOsm/kg (285-295); Potassium 3.9 mmol/L (3.5-5.1); Sodium 142 mmol/L (136-145); Total Bilirubin 0.3 mg/dL (0.15-1.2); Total Protein 7.5 g/dL (6.6-8.7)
[2020-05-15 08:25] LABS: Troponin(5th) Baseline 6 ng/L (0-15)
[2020-05-15 08:26] LABS: D Dimer <= 0.27 ug/mIFEU (0-0.59)
[2020-05-15 08:38] LABS: Blood Gas Sample Type Arterial
[2020-05-15 08:46] LABS: Add Urine Microscopic? YES; Bilirubin Urine Neg (Negative); Blood Urine 3+ (Negative); Glucose Urine UA Norm (Normal); Ketones Urine Negative (Negative); Leukocyte Esterase Urine Negative (Negative); Nitrate Urine Negative (Negative); Protein Urine 1+ (Negative); Urine Appearance Clear (CLEAR); Urine Color Yellow (Yellow); Urobilinogen Urine 1 mg/dL (Negative); pH Urine 5 (5-7)
[2020-05-15 08:47] LABS: Add Urine Culture? No; Bacteria Urine TRACE /hpf; Mucus Urine 1+ /hpf
[2020-05-15 08:50] LABS: ABG PCO2 25.9 mmHg (35-45); ABG PH Result 7.51 (7.35-7.45); Alveolar-Arterial Oxygen Gradi 5.8 mmHg (5-10); Arterial Blood Gas Hematocrit 48.8 % (42-52); Base Excess ABG -0.8 mmol/L (-2.0-2.0); Blood Gas Operator Identificat GD; Blood Gas Sample Site Brachial, left; Carboxyhemoglobin 4.2 %THgb (0.4-20.1); HCO3 ABG 20.5 mmol/L (22-26); HGB O2 Sat 92.3 % (95-100); Ionized Calcium Level - ABG 1.2 mmol/L (1.1-1.4); Methemoglobin 0.7 % (0.4-1.5); PO2 ABG 70.9 mmHg (80.0-100.0); Potassium Level - ABG 3.9 mmol/L (3.5-5.0); Total Hemoglobin 15.9 g/dL (14-18)
[2020-05-15] MEDS: lidocaine 2% viscous 15 ML, aluminum-mag hydrox-simethicon 30 ML, sucralfate oral liq 1 GM PO (08:56)
--- NOTE | 2020-05-15 09:01 | CT_ITS ---
WS: [id number] CT ABDOMEN AND PELVIS NONCONTRAST HISTORY: hematuria TECHNIQUE: Imaging performed through the abdomen and pelvis. Coronal and sagittal reformats are submi tted. All CT scans at [facility] use at least one of these dose optimization techniques: automated exposure control; mA and/or kV adjustment per patient size (includes targeted exams where d ose is matched to clinical indication); or iterative reconstruction. DLP: 1182.01 mGy.cm COMPARISON: 03/06/2020 Lower thorax: Lung bases are clear. Visualized heart is normal. No hiatal hernia. Liver: Low-attenuation throughout the liver from fatty infiltration. No intrahepatic dilatation or ma ss. Gallbladder: Normal gallbladder. Pancreas: Normal size and attenuation. Normal pancreatic duct. No pancreatitis or mass. Spleen: Normal. Adrenal glands: Normal. No mass. Right kidney: Normal size kidney with no mass or hydronephrosis. Left kidney: Nonobstructing 2 mm calcification lower pole. No hydronephrosis. No LEFT ureteral calcif ication. Aorta: Normal abdominal aorta, no aneurysm or atherosclerosis. No free fluid, intraperitoneal air or significant lymphadenopathy. GI tract: Normal appendix. No GI tract obstruction or diverticulosis. Mild diffuse fecal retention. N o wall thickening. Abdominal wall: Negative. No hernia. Pelvis: Normal. Osseous structures: Intramedullary diane proximal RIGHT femur. No osteoblastic or osteolytic bone disea se. CT/CT kidney stone [id number] IMPRESSION: 1. No renal obstruction or hydronephrosis. 2. Nonobstructing 2 mm LEFT renal calcification. 3. Normal appendix. 4. Moderate diffuse fecal retention and constipation. 5. Hepatic steatosis.
--- NOTE | 2020-05-15 09:50 | ECG_ITS ---
[facility] Test Date: 2020-05-15 Pat Name: Wu Brown Department: Room: Gender: Male Real Estate Management Specialist: : 1985 Requested By: Zacarias aGrza Order Number: [id number] Cheryl MD: Mira Burks M.D. Measurements Intervals [place] Rate: 52 P: 47 OK: 157 QRS: 58 QRSD: 102 T: 49 QT: 385 QTc: 361 Interpretive Statements SINUS BRADYCARDIA WITH SINUS ARRHYTHMIA Compared to ECG 05/15/2020 07:42:24 Sinus rhythm no longer present Electronically Signed On 05-15-2020 20:17:55 CDT by Mira Burks M.D. [id number]
[2020-05-15 10:18] LABS: SARS Covid-2 Antigen Negative (Negative)
[2020-05-15 10:44] LABS: Troponin 5 2HR Delta 0 ABS# (0-10)
--- NOTE | 2020-05-15 11:25 | DCPLANNER ---
human relations manager was asked to schedule a follow up appointment for patient with general surgery. human relations manager called Information Systems Audit Manager appointment, spoke with Jinny, a follow up appointment was scheduled for Friday, May 15, 2020 at 1:[address] Bloom. human relations manager informed patient of the scheduled appointment. Patient stated that he would attend the appointment.
[2020-05-15 11:28] VITALS: BP 139/88; PULSE 64; RESP 18; O2SAT 98
--- NOTE | 2020-05-25 07:43 | DCPLANNER ---
Patient had an appointment scheduled for 05.15.20 [facility] - patient did attend appointment.
== END 2020-05-15 11:29 | disposition home or self-care (01) ==
PROVIDERS: Emergency Provider Family Medicine
DX: K21.9 Gastro-esophageal reflux disease without esophagitis (principal); F17.210 Nicotine dependence, cigarettes, uncomplicated; J45.909 Unspecified asthma, uncomplicated
CPT/HCPCS: 12345; 36600; 71045; 74176; 80051; 80053; 81001; 82550; 82810; 83986; 84484; 85025; 85378; 87426; 93005; 99283; 99284

== ENCOUNTER → 2020-05-16 09:56 | Outpatient (BNVA) | payer OTHER, SELFPAY | PROVIDERS: Visit Provider Surgery | DX: Z11.59 Encounter for screening for other viral diseases (principal) | CPT/HCPCS: 87635 ==

== ENCOUNTER 2020-05-18 06:22 | Day surgery (SDC) | payer SELFPAY ==
[2020-05-16 09:54] VITALS: BMI 24.4
[2020-05-18 06:41] VITALS: BP 127/70; PULSE 55; RESP 18; TEMP 36.4; O2SAT 98; BMI 24.4
--- NOTE | 2020-05-18 06:48 | ANES.PREANE2 ---
Pre-Anesthetic Assessment Pre-Anesthetic Assessment: Height/Weight: Height 1.85 m Weight 83.915 kg Temp Pulse Resp BP Pulse Ox 97.5 F L 55 L 18 127/70 98 05/18/20 06:41 05/18/20 06:41 05/18/20 06:41 05/18/20 06:41 05/18/20 06:41 Preop Diagnosis: Epigastric pain Proposed Procedure: Operation Date: 05/18/20 07:25 Proposed Procedures p EGD 04509 K21.9(Not Applicable) - Dwayne Leigh MD Familial anesthetic complications: Took him awhile to wake up from his femur fracture repair Was Beta Anmol taken within 24 hours: N/A Last intake: Intake Last Liquid Date 05/17/20 Last Liquid Time 20:00 Last Solid Date 05/17/20 Last Solid Time 20:00 Social: Social History: Tobacco and No alcohol Comment: former drinker Exam: Pre-Anes Outpt Exam: alert, oriented x 3, clear to auscultation bilaterally and regular rate & rhythm Airway: Cervical ROM: WNL MP: 2 Dentition: Other (missing) Hepatic: Hepatic: Hepatitis Comments: fatty liver GI: GI: GERD Anesthetic Plan: ASA status: 2 Anesthesia: MAC Risk of > 500 ml blood loss (7ml/kg in children): No PFSH Anesthesia PFSH: Medical History Asthma Cervical radicular pain Surgical History History of surgery on extremity History of surgery on upper extremity Family History Other Cancer Heart disease Social History Smoking and tobacco status: current every day smoker cigarettes Packs smoked per day: 1.5 Years cigarettes smoked: 14 Alcohol intake: current Alcohol intake frequency: few times a week Data Anesthesia Cardiac Studies: No Data to Display
[2020-05-18] MEDS: sodium chloride 0.9% 1,000 ML 30 ML IV (06:49)
--- NOTE | 2020-05-18 07:05 | W.PM.OPSUD ---
Surgery/Procedure H&P Update DATE OF PROCEDURE: May 18, 2020 DATE H&P PERFORMED: 05/15/20 H&P UPDATE INFORMATION: I have reviewed H&P completed within last 30 days, I have examined patient prior to procedure and No changes to prior documentation PREOP DIAGNOSIS: Epigastric and chest pain PRIMARY INDICATION FOR PROCEDURE: The same PLANNED PROCEDURE: Operation Date: 05/18/20 07:25 Proposed Procedures p EGD 71059 K21.9(Not Applicable) - Dwayne Leigh MD
[2020-05-18 07:55] VITALS: BP 110/63; PULSE 48; RESP 18; TEMP 36.6; O2SAT 99
[2020-05-18 08:06] VITALS: BP 122/67; PULSE 52; RESP 18; O2SAT 98
--- NOTE | 2020-05-18 08:10 | ANE.PACU2 ---
Inpatient post-anesthesia follow up: Airway intact: Yes Vital signs: Temperature 97.8 F Pulse Rate 52 Respiratory Rate 18 Blood Pressure 122/67 Pulse Oximetry 98 Oxygen Delivery Me thod Room Air Oxygen Flow Rate Fraction of Inspir ed Oxygen Hydration adequate: Yes Nausea and vomiting: No Pain level: 1 Mental status: Baseline
[2020-05-19 12:51] LABS: H. Pylori / CLO Test Negative
== END 2020-05-18 08:13 | disposition home or self-care (01) ==
PROVIDERS: Visit Provider Surgery
PROC: 0DJ08ZZ Inspection of Upper Intestinal Tract, Via Natural or Artificial Opening Endoscopic (ICD-10-PCS; CPT 43235; principal; 2020-05-18 07:25)
DX: K29.70 Gastritis, unspecified, without bleeding (principal); R10.13 Epigastric pain; R07.89 Other chest pain; Z86.19 Personal history of other infectious and parasitic diseases; F17.210 Nicotine dependence, cigarettes, uncomplicated; J45.909 Unspecified asthma, uncomplicated
CPT/HCPCS: 12345; 43239; 87077; J2704; J3010; J7030

== ENCOUNTER 2020-09-04 08:24 | Emergency (ER) | payer SELFPAY ==
[2020-09-04 08:29] VITALS: BP 153/89; PULSE 61; RESP 16; TEMP 36.3; O2SAT 100; BMI 25.7
--- NOTE | 2020-09-04 08:31 | XR_ITS ---
WS: [id number] PORTABLE CHEST HISTORY: dyspnea/cough COMPARISON: 05/15/2020 New mild interstitial thickening. Slight increased opacification over the RIGHT hilum is new since th e prior study. No pleural effusion or pneumothorax. Cardiac size: Normal. Mediastinum/Aorta: Normal mediastinum. No osseous abnormality seen. XR/XR chest 1V portable [id number] IMPRESSION: Suspect mild changes of pneumonitis.
--- NOTE | 2020-09-04 08:56 | W.ED.SOB ---
HPI - SOB/Dyspnea General: Chief Complaint: Upper Respiratory Infection Stated Complaint: Lungs in pain/metal fabrication Time Seen by Provider: 09/04/20 08:28 History of Present Illness: HPI Narrative: 35-year-old male presents to the emergency room with complaint of right lung pain. She has been going on for the last 2 weeks. He has a productive cough dark discolored sputum which has been worsening. Patient is a heavy smoker and has been smoking by his account for 23 years. He is not had any fever denies shortness of breath. In the nurses notes says he has no cough however when I asked him directly told me he did have a productive cough of dark sputum. He is not on any inhaled medications. No anosmia, no diarrhea. Pt has hx of asthma. MD elicited complaint: shortness of breath and cough Pertinent past history: COPD Onset (ago): week(s) (2) Context: occurred during exertion and other (Heavy smoker) Timing: constant Exacerbating factors: exertion and coughing Relieving factors: rest Associated symptoms: Reports chest pain; Deny abdominal pain, chest congestion, cough, diaphoresis, dizziness, extremity pain, fever(s), hemoptysis, lightheadedness, myalgias, nausea, orthopnea, palpitations, paresthesias, polydipsia, polyuria, rash, sense of impending doom, syncope or vomiting Treatment prior to arrival: none Review of Systems Const: Denies: fever(s) or diaphoresis ENMT: Denies: throat pain, ear or mastoid pain, nasal discharge or nasal congestion Card: Reports: chest pain; Denies: palpitations, lightheadedness, syncope or orthopnea Resp: Denies: hemoptysis or chest congestion GI: Denies: abdominal pain, nausea or vomiting : Denies: flank pain, dysuria, urinary frequency or urinary urgency Musc: Denies: extremity pain Skin/Breast: Denies: rash or pruritus Neuro: Denies: dizziness Endo: Denies: polyuria or polydipsia [facility] ED PFSH: Medical History Asthma Cervical radicular pain Surgical History History of surgery on extremity History of surgery on upper extremity Family History Other Cancer Heart disease Social History Smoking and tobacco status: current every day smoker cigarettes Packs smoked per day: 1.5 Years cigarettes smoked: 14 Alcohol intake: current Alcohol intake frequency: few times a week Physical Exam Const: COMMON NORMALS: no acute distress GENERAL APPEARANCE: cooperative and comfortable ORIENTATION/CONSCIOUSNESS: Yes awake, Yes oriented to person, Yes oriented to place and Yes oriented to time HENMT: COMMON NORMALS: normocephalic, atraumatic and hearing grossly normal bilaterally HEAD & SCALP: normocephalic and atraumatic Neck/C-Spine: COMMON NORMALS: no JVD Resp: COMMON NORMALS: normal respiratory effort, No retractions, No use of accessory muscles and clear to auscultation bilaterally AUSCULTATION: clear to auscultation bilaterally Cardio: COMMON NORMALS: no JVD, regular rate, regular rhythm and No murmurs present (Cardio) RATE: regular rate RHYTHM: regular rhythm GI: COMMON NORMALS: Soft to palpation and No hepatosplenomegaly present AUSCULTATION: Yes normoactive bowel sounds PALPATION: Yes Soft to palpation, No Tenderness to palpation present (GI), No Guarding due to palpation present (GI) and Yes No hepatosplenomegaly present Extremity: COMMON NORMALS: normal to inspection, capillary refill normal, no clubbing, cyanosis or edema, no calf tenderness and no pedal edema Neuro: SENSORIUM/ORIENTATION: Yes oriented to person, Yes oriented to place and Yes oriented to time Skin: COMMON NORMALS: no rashes or lesions noted GENERAL SKIN EXAM: no rashes or lesions noted Course Vital Signs: Vital signs: Vital Signs Temperature 97.3 F L 09/04/20 08:29 Pulse Rate 61 09/04/20 09:33 Respiratory Rate 16 09/04/20 09:33 Blood Pressure 153/89 09/04/20 09:33 Pulse Oximetry 100 09/04/20 09:33 MDM - SOB/Dyspnea MDM Narrative: Medical decision making narrative: Supportive cares Medrol Dosepak albuterol doxycycline. Recheck if not improving Lab Data: Labs: Lab Results 09/04/20 09/04/20 Range/Units 08:52 08:52 WBC 10.4 H (4.0-10.0) 10^3/ uL RBC 5.61 H (4.1-5.3) 10^6/u L Hgb 16.2 (11.7-16.6) g/dL Hct 48.9 (42.0-52.0) % MCV 87.2 (80-94) fL MCH 28.9 (28.0-34.0) pg MCHC 33.1 (30.0-36.0) g/dL RDW 12.0 L (12.1-15.1) % Plt Count 310 (130-400) 10^3/c mm MPV 10.1 (7.4-10.4) fL Neut % (Auto) 65.8 % Lymph % (Auto) 23.8 % [place] % (Auto) 7.2 % Eos % (Auto) 2.5 % Baso % (Auto) 0.4 % Neut # (Auto) 6.84 (1.8-7.7) 10^3/u L Lymph # (Auto) 2.5 (0.8-4.8) 10^3/u L [place] # (Auto) 0.8 (0.2-0.9) 10^3/u L Eos # (Auto) 0.3 (0.0-0.8) 10^3/u L Baso # (Auto) 0.0 (0.0-0.1) 10^3/u L Nucleated RBC % (a uto) 0 % Nucleated RBCs # 0.0 /100WBC Sodium 137 (136-145) mmol/L Potassium 4.4 (3.5-5.1) mmol/L Chloride 103 (98-107) mmol/L Carbon Dioxide 28 (22-29) mmol/L Anion Gap 10.4 (5-19) BUN 14 (6-20) mg/dL Creatinine 1.0 (0.7-1.2) mg/dL GFR Calculation 86.1 L (90-130) mL/min Glucose 87 (65-115) mg/dL Calculated Osmolal ity 284 L (285-295) mOsm/k g Calcium 9.7 (8.5-10.5) mg/dL Discharge Plan Discharge Patient Disposition: Home Clinical Impression: Asthma, Bronchitis Condition: Stable Prescriptions: New doxycycline hyclate 100 mg capsule 100 mg PO BID 10 Days Qty: 20 RF: 0 Medrol (Vern) 4 mg tablets,dose pack See Rx Instructions .ROUTE .COMPLEX Qty: 21 RF: 0 albuterol sulfate 90 mcg/actuation HFA aerosol inhaler 2 inh INHALATION Q4H PRN (Reason: shortness of breath or wheezing) Qty: 18 RF: 0 Discharge Orders: Discharge ED (Routine); Ordered 09/04/20 Ordered By: Zacarias Severino Discharge Diet: Usual diet Discharge Activity: Resume usual activity Activity Restrictions/Additional Instructions: Follow-up with your primary care doctor in 4 to 5 days if not beginning to show some improvement. Coding Level of Care Code ED Corporate Counselor for [employer] Fwd Exam Comprehensive
[2020-09-04 08:59] LABS: Basophils % 0.4 %; Eosinophils # 0.3 10^3/uL (0.0-0.8); Eosinophils % 2.5 %; Hematocrit 48.9 % (42.0-52.0); Hemoglobin 16.2 g/dL (11.7-16.6); Lymphocytes # 2.5 10^3/uL (0.8-4.8); Lymphocytes % 23.8 %; Mean Corpuscular HGB Conc 33.1 g/dL (30.0-36.0); Mean Corpuscular Hemoglobin 28.9 pg (28.0-34.0); Mean Corpuscular Volume 87.2 fL (80-94); Mean Platelet Volume 10.1 fL (7.4-10.4); Monocytes # 0.8 10^3/uL (0.2-0.9); Monocytes % 7.2 %; Neutrophils # 6.84 10^3/uL (1.8-7.7); Neutrophils % 65.8 %; Nucleated Red Blood Cells % 0 %; Platelet Count 310 10^3/cmm (130-400); Red Blood Count 5.61 10^6/uL (4.1-5.3); White Blood Count 10.4 10^3/uL (4.0-10.0)
--- NOTE | 2020-09-04 09:09 | PC.NURSE ---
XR performed at bedside
[2020-09-04 09:21] LABS: Anion Gap 10.4 (5-19); Blood Urea Nitrogen 14 mg/dL (6-20); Calcium 9.7 mg/dL (8.5-10.5); Carbon Dioxide 28 mmol/L (22-29); Chloride 103 mmol/L (98-107); Glomerular Filtration Rate 86.1 mL/min (90-130); Glucose 87 mg/dL (65-115); Osmolality Calculated 284 mOsm/kg (285-295); Potassium 4.4 mmol/L (3.5-5.1); Sodium 137 mmol/L (136-145)
[2020-09-04 09:33] VITALS: BP 153/89; PULSE 61; RESP 16; O2SAT 100
== END 2020-09-04 09:35 | disposition home or self-care (01) ==
PROVIDERS: Emergency Provider Family Medicine
DX: J40 Bronchitis, not specified as acute or chronic (principal); J45.909 Unspecified asthma, uncomplicated; F17.210 Nicotine dependence, cigarettes, uncomplicated
CPT/HCPCS: 12345; 71045; 80048; 85025; 99283

== ENCOUNTER 2021-08-13 14:28 | Emergency (ER) | payer SELFPAY ==
[2021-08-13 14:49] VITALS: BMI 25.0
[2021-08-13 14:53] VITALS: BP 122/78; PULSE 65; RESP 18; TEMP 36.7; O2SAT 98
--- NOTE | 2021-08-13 15:10 | W.ED.BACK ---
HPI - Back Pain/Injury General: Chief Complaint: Back Pain/Injury Stated Complaint: Lower back pain Time Seen by Provider: 08/13/21 15:08 Source: patient Mode of arrival: ambulatory Limitations: no limitations History of Present Illness: HPI Narrative: Patient is a 36-year-old male who presents to ED today with complaint of lower back pain over the past few months. He denies any precipitating injury or trauma. He states his pain is localized to the lumbar midline region. He is not having any radicular symptoms into his lower extremities. He denies any saddle anesthesia. Patient is not having any episodes of urinary retention or bowel incontinence. Denies fever/chills. Denies IV drug use. Patient states he does do a lot of heavy lifting daily because of work. Patient does not have a primary care doctor and has never sought evaluation for his back pain previously. He is currently rating his discomfort at a 6/10. MD elicited complaint: back pain Onset (ago): month(s) Timing: constant Severity: moderate Location: lumbar spine Radiation: none Exacerbating factors: movement and lifting Relieving factors: none Associated symptoms: Deny abdominal pain, chills, difficulty walking, dysuria, fatigue, fever(s) or hematuria Review of Systems Const: Denies: fever(s), chills, body aches, fatigue or malaise Card: Denies: chest pain Resp: Denies: dyspnea GI: Denies: abdominal pain : Denies: flank pain, dysuria or hematuria Musc: Reports: back pain; Denies: neck pain, extremity pain, extremity swelling, joint pain, joint swelling, joint redness, joint warmth, joint stiffness, limited range of motion, muscle weakness or decrease in muscle mass Skin/Breast: Denies: rash Neuro: Denies: headache(s), numbness in extremities, weakness in extremities, sensory changes, difficulty walking or frequent falls [facility] ED PFSH: Medical History Asthma Cervical radicular pain Surgical History History of surgery on extremity History of surgery on upper extremity Family History Other Cancer Heart disease Social History Smoking and tobacco status: current every day smoker cigarettes Packs smoked per day: 1.5 Years cigarettes smoked: 14 Alcohol intake: current Alcohol intake frequency: few times a week Physical Exam Const: COMMON NORMALS: no acute distress, average body habitus, patient oriented x3, no limitations, healthy appearing, alert and well nourished HENMT: COMMON NORMALS: normocephalic and atraumatic HEAD & SCALP: normocephalic and atraumatic : COMMON NORMALS: Yes no CVA tenderness BLADDER/KIDNEY EXAM: Yes no CVA tenderness Back/Pelvis: COMMON NORMALS: no CVA tenderness THORACIC SPINE/UPPER BACK: Yes normal to inspection, Yes thoracic ROM normal, No thoracic spinal tenderness and No paraspinal muscle spasm LUMBAR SPINE/LOWER BACK: Yes pain with ROM, Yes lumbar spinal tenderness (mid to lower L spine), No paraspinal muscle tenderness, No paraspinal muscle spasm and Yes straight leg raise negative bilaterally PELVIS: Yes buttocks normal SACROILIAC JOINTS: Yes SI joints normal Extremity: COMMON NORMALS: normal to inspection and full ROM GENERAL: Yes normal exam except as noted Neuro: COMMON NORMALS: patient oriented x3, moves all extremities, no focal motor deficits, no sensory deficits noted and gait normal SENSORIUM/ORIENTATION: Yes alert MOTOR EXAM: 5/5 motor strength present throughout Skin: COMMON NORMALS: no rashes or lesions noted GENERAL SKIN EXAM: no rashes or lesions noted Course Vital Signs: Vital signs: Vital Signs Temperature 98.1 F 08/13/21 14:53 Pulse Rate 59 L 08/13/21 17:27 Respiratory Rate 18 08/13/21 17:27 Blood Pressure 122/78 08/13/21 14:53 Pulse Oximetry 99 08/13/21 17:27 MDM - Back Pain/Injury MDM Narrative: Medical decision making narrative: Pt here with back pain x months. XRs negative. Pain slightly improved after IM meds. No red flags on hx/physical exam. Info placed with CM for PCP set up/outpatient follow up and evaluation. Return to ED precautions given. Imaging Data^: XR lumbar: Radiologist's impression: [address] [place], [place] [address]PZza ReportSigned Patient: Wu Brown #: [id number]: 1985Acct#:[id number]/Sex: 36 / MADM Date: 08/13/21Loc: ERRoom/Bed:Attending Dr: Ordering Provider/Ordering MD: Kamala Jo Date of Service: 08/13/21 Procedure(s): XR lumbar spine 2-3V* 79894 Accession Number(s): [id number] Report Number: [id number] WS: [id number] XR lumbar spine 2-3V* [id number] REASON FOR EXAM: low back pain FINDINGS: No significant vertebral body compression deformity or focal vertebral body lesion. Mild narrowing of the intervertebral disc spaces L1-L3. No spondylolisthesis or spondylolysis. Lumbar spine appears unchanged compared to CT scan abdomen and pelvis 05/15/2020. XR/XR lumbar spine 2-3V* [id number] IMPRESSION: No significant abnormality identified. Dictated By:Antelmo Bonner Jr MDSigned By:Antelmo Bonner Jr MDSigned Date/Time:08/13/21 1549DD/ 154 Discharge Plan Discharge Patient Disposition: Home Clinical Impression: Low back pain Qualifiers: Chronicity: acute Back pain laterality: midline Sciatica presence: without sciatica Qualified Code(s): M54.50 - Low back pain, unspecified Condition: Stable Prescriptions: New cyclobenzaprine 10 mg tablet 10 mg PO TID Qty: 14 RF: 0 ibuprofen 800 mg tablet 800 mg PO Q8H PRN (Reason: pain) Qty: 20 RF: 0 Medrol (Vern) 4 mg tablets,dose pack See Rx Instructions .ROUTE .COMPLEX Qty: 21 RF: 0 Discontinued prednisone 20 mg tablet 20 mg PO DAILY 5 Days Qty: 5 RF: 0 No Action doxycycline hyclate 100 mg tablet 100 mg PO BID 7 Days Qty: 14 RF: 0 albuterol sulfate 90 mcg/actuation HFA aerosol inhaler 2 inh INHALATION Q4H PRN (Reason: shortness of breath or wheezing) Qty: 18 RF: 0 Discharge Orders: Discharge ED (Routine); Ordered 08/13/21 Ordered By: Kamala Jo Patient Instructions: Acute Low Back Pain (ED), Back Pain (ED), Lower Back Exercises (ED) Activity Restrictions/Additional Instructions: As we discussed case management should contact you shortly to set you up with a follow-up appointment with a primary care provider for further evaluation/management of your lower back pain. Coding Level of Care Code ED Bi Application Developer for Nahun Fwd Exam Detailed
--- NOTE | 2021-08-13 15:18 | XR_ITS ---
WS: [id number] XR lumbar spine 2-3V* [id number] REASON FOR EXAM: low back pain FINDINGS: No significant vertebral body compression deformity or focal vertebral body lesion. Mild narrowing of the intervertebral disc spaces L1-L3. No spondylolisthesis or spondylolysis. Lumbar spine appears unchanged compared to CT scan abdomen and pelvis 05/15/2020. XR/XR lumbar spine 2-3V* [id number] IMPRESSION: No significant abnormality identified.
[2021-08-13] MEDS: dexamethasone 10 mg/mL INJ 8 MG IM (15:20)
[2021-08-13] MEDS: ketorolac 60 mg/2 mL INJ IM (16:15)
[2021-08-13] MEDS: orphenadrine 30 mg/mL Inj 2 mL 60 MG IM (16:21)
[2021-08-13] MEDS: morphine 4 mg/mL SDV 1 mL IM (17:05)
[2021-08-13 17:27] VITALS: PULSE 59; RESP 18; O2SAT 99
--- NOTE | 2021-08-20 15:34 | DCPLANNER ---
merchandise flow manager had message to speak with patient about getting established with a primary care physician, unable to speak with patient at this time.
== END 2021-08-13 17:28 | disposition home or self-care (01) ==
PROVIDERS: Emergency Provider Physician Assistant
DX: M54.50 Low back pain, unspecified (principal); F17.210 Nicotine dependence, cigarettes, uncomplicated
CPT/HCPCS: 72100; 96372; 99283; J1100; J1885; J2270; J2360

== ENCOUNTER 2021-09-12 12:54 | Emergency (ER) | payer SELFPAY ==
[2021-09-12 13:23] VITALS: BP 136/82; PULSE 75; RESP 18; TEMP 37; O2SAT 99; BMI 25.7
--- NOTE | 2021-09-12 13:30 | US_ITS ---
WS: [id number] TESTICULAR ULTRASOUND HISTORY: testicle pain, left-sided pain. COMPARISON: None available. TECHNIQUE: Real-time and color Doppler imaging or utilized to perform a testicular ultrasound. Right testicle: 4.0 cm x 2.7 cm x 2.4 cm. Normal size and echogenicity. No mass or torsion. Normal color Doppler is present throughout. Systolic and diastolic velocities are both present. No significant hydrocele. Right epididymis: Normal epididymis with no increased vascularity. Left testicle: 3.7 cm x 2.2 cm x 3.0 cm. Normal size and echogenicity. No mass or torsion. Normal color Doppler is present throughout. Systolic and diastolic velocities are both present. No significant hydrocele. Left epididymis: Normal epididymis with no increased vascularity. Increased vascularity surrounding the LEFT testicle consistent with a varicocele. Diameter of the tracie icocele is approximately 3 mm. US/US scrotum [id number] IMPRESSION: 1. Small LEFT varicocele. 2. No testicular mass or torsion.
--- NOTE | 2021-09-12 19:11 | W.ED.MALEGU ---
HPI - Male Genitourinary General: Chief complaint: Urogenital-Male Stated complaint: Breaking out in a rash Time Seen by Provider: 09/12/21 19:11 History of Present Illness: 36-year-old male patient comes in today with complaints of left testicular pain for 3 to 4 weeks. Patient is also concerned for a rash to his back. Patient reports lifting aggravates the pain. Patient appears in moderate pain. Patient denies any chronic medical problems. Patient does have a history of GERD. MD Complaint: testicle pain Onset (ago): week(s) Duration: intermittent Location: left testicle Radiation: left inguinal region Severity: moderate Quality: burning Relieving factors: rest Exacerbating factors: movement Review of Systems : Reports: testicular pain [facility] ED PFSH: Medical History Asthma Cervical radicular pain Surgical History History of surgery on extremity History of surgery on upper extremity Family History Other Cancer Heart disease Social History Smoking and tobacco status: current every day smoker cigarettes Packs smoked per day: 1.5 Years cigarettes smoked: 14 Alcohol intake: current Alcohol intake frequency: few times a week Physical Exam Const: COMMON NORMALS: no acute distress Resp: COMMON NORMALS: normal respiratory effort Cardio: COMMON NORMALS: regular rate and regular rhythm RATE: regular rate RHYTHM: regular rhythm GI: COMMON NORMALS: Soft to palpation and non-tender PALPATION: Yes Soft to palpation : COMMON NORMALS: Yes no CVA tenderness BLADDER/KIDNEY EXAM: Yes no CVA tenderness Back/Pelvis: COMMON NORMALS: no CVA tenderness Extremity: COMMON NORMALS: normal to inspection Neuro: COMMON NORMALS: moves all extremities Psych: COMMON NORMALS: cooperative Skin: RASHES: rashes noted (Fine red rash noted to the back.) Course Vital Signs: Vital signs: Vital Signs Temperature 98.6 F 09/12/21 13:23 Pulse Rate 75 09/12/21 13:23 Respiratory Rate 18 09/12/21 13:23 Blood Pressure 136/82 09/12/21 13:23 Pulse Oximetry 99 09/12/21 13:23 [facility] - Male Medical Decision Making 36-year-old male patient comes in with left testicular pain. Patient reports pain on and off for several weeks now. Patient reports pain is worse today after straining to lift something. On exam abdomen soft nontender. No CVA tenderness. Patient does have a light red rash to his torso. Differential diagnosis includes epididymitis, testicular torsion, hydrocele, shingles. I was unable to do a thorough exam of the groin due to patient being placed in vertical flow. Ultrasound of the testicles indicated a varicocele but no signs of testicular torsion or hernia or epididymitis. I recommended patient follow-up with urology for further evaluation of varicocele and treatment. Most likely this is the cause for patient's testicular pain. The rash which patient also expressed concern appears to be dermatitis either secondary to Ndiaye itch or contact. Patient be given a short course of hydrocodone tablets for pain. Patient will also be written for triamcinolone cream for his rash. Patient and female significant other reported understanding. Lab Data Radiology Impressions Scrotum Ultrasound 09/12/21 13:30 IMPRESSION: 1. Small LEFT varicocele. 2. No testicular mass or torsion. Discharge Plan Discharge Patient Disposition: Home Clinical Impression: Left varicocele, Dermatitis Condition: Stable Prescriptions: New triamcinolone acetonide 0.1 % cream 1 applic topical BID Qty: 80 0RF hydrocodone-acetaminophen 5-325 mg tablet 1 tab PO Q8H PRN (Reason: pain (scale score 7-10)) Qty: 10 0RF No Action doxycycline hyclate 100 mg tablet 100 mg PO BID 7 Days Qty: 14 0RF albuterol sulfate 90 mcg/actuation HFA aerosol inhaler 2 inh INHALATION Q4H PRN (Reason: shortness of breath or wheezing) Qty: 18 0RF cyclobenzaprine 10 mg tablet 10 mg PO TID Qty: 14 0RF ibuprofen 800 mg tablet 800 mg PO Q8H PRN (Reason: pain) Qty: 20 0RF Medrol (Vern) 4 mg tablets,dose pack See Rx Instructions .ROUTE .COMPLEX Qty: 21 0RF Rx Instructions: orally per package directions Discharge Orders: Discharge ED (Routine); Ordered 09/12/21 Ordered By: Luis Angel Blake Discharge Diet: Usual diet Discharge Activity: Increase activity as tolerated Patient Instructions: Varicocele (ED), Opioid Safety Activity Restrictions/Additional Instructions: Home and rest. Drink plenty of water. Activity as tolerated. Use a good emoilent lotion to help smooth steroid cream over rash. Drink plenty of water with medications. Follow-up with primary care for further treatment regarding rash if needed. Follow-up with urologist for further treatment regarding testicular pain. Coding Level of Care Code ED System Support Technician for Chg Fwd History Problem Focused Exam Expanded Problem Focused Medical Decision Making Low Complexity Time Spent (min) 20
[2021-09-12] MEDS: HYDROcodone-acetaminophen 5-325 mg Tablet 1 TAB PO (19:33)
[2021-09-12 19:37] VITALS: PULSE 80; RESP 18; O2SAT 100
--- NOTE | 2021-09-13 11:37 | DCPLANNER ---
Addendum entered by Deloris Rasmussen 11/09/21 08:12: Patient had a follow up appointment scheduled for 11.01.[address] Beckwith - patient did not attend appointment. Addendum entered by Deloris Rasmussen 09/14/21 04:27: Patient has a follow up appointment scheduled for October at 9:[address] Beckwith. Clinic will call patient with appointment information. Original Note: skilled nursing case manager had message to schedule a follow up appointment for patient with Dr. Beckwith. skilled nursing case manager emailed patients information to Basilio Méndez and Julie at the office of Dr. Beckwith. Patients information will be printed and reviewed. Clinic will call patient with appointment information.
== END 2021-09-12 19:38 | disposition home or self-care (01) ==
PROVIDERS: Emergency Provider Nurse Practitioner Family
DX: I86.1 Scrotal varices (principal); L30.9 Dermatitis, unspecified; F17.210 Nicotine dependence, cigarettes, uncomplicated
CPT/HCPCS: 76870; 99283

== ENCOUNTER → 2022-02-21 14:51 | Outpatient (BNVA) | payer SELFPAY | PROVIDERS: PCP Family Medicine Adult Medicine; Referring Provider Family Medicine Adult Medicine; Visit Provider Orthopaedic Surgery | DX: M54.50 Low back pain, unspecified (principal); G89.29 Other chronic pain | CPT/HCPCS: 72120 ==

== ENCOUNTER → 2022-03-04 16:45 | Outpatient (BNVA) | payer SELFPAY | PROVIDERS: PCP Family Medicine Adult Medicine; Visit Provider Family Medicine | DX: R51.9 Headache, unspecified (principal); J18.9 Pneumonia, unspecified organism | CPT/HCPCS: 71046 ==

== ENCOUNTER → 2023-04-01 07:59 | Outpatient (BNVA) | payer OTHER, SELFPAY | PROVIDERS: PCP Family Medicine Adult Medicine; Visit Provider Physician Assistant | DX: M54.50 Low back pain, unspecified (principal); R32 Unspecified urinary incontinence; R15.9 Full incontinence of feces | CPT/HCPCS: 72110 ==

== ENCOUNTER 2023-04-02 15:33 | Outpatient (CLI) | payer OTHER, SELFPAY ==
--- NOTE | 2023-04-02 16:45 | MRR_ITS ---
PROCEDURE INFORMATION: Exam: MR Lumbar Spine Without Contrast Exam date and time: 04/02/2023 4:24 PM Age: 37 years old Clinical indication: Low back pain; Patient HX: Lbp ble pain worse on rle chronic progressive but new incontinence bowel and urine x a few months no recent injury TECHNIQUE: Imaging protocol: Magnetic resonance imaging of the lumbar spine without contrast. COMPARISON: CR XR lumbar spine min 4V [id number] 04/01/2023 8:09 AM FINDINGS: Bones/joints: Unremarkable. No fracture. Normal alignment. Spinal cord: Visualized cord, conus medullaris and cauda equina are unremarkable without compression. L1-L2: Early sequela of degenerative disc disease with some loss of intrinsic T2 signal and mild disc height loss. There is also edematous Modic type degenerative changes of the anterior/superior endplate of L2. No significant disc bulge or herniation. No severe spinal canal stenosis. No significant neural foraminal narrowing. L2-L3: No significant disc bulge or herniation. No severe spinal canal stenosis. No significant neural foraminal narrowing. L3-L4: No significant disc bulge or herniation. No severe spinal canal stenosis. No significant neural foraminal narrowing. L4-L5: No significant disc bulge or herniation. No severe spinal canal stenosis. No significant neural foraminal narrowing. L5-S1: No significant disc bulge or herniation. No severe spinal canal stenosis. No significant neural foraminal narrowing. Soft tissues: Unremarkable. MR/MR lumbar spine wo con* [id number] IMPRESSION: 1. No significant spinal canal or neural foraminal stenosis. 2. Early sequela of degenerative disc disease at L1-L2.
== END 2023-04-02 15:34 | disposition home or self-care (01) ==
PROVIDERS: PCP Family Medicine Adult Medicine; Visit Provider Physician Assistant
DX: R15.9 Full incontinence of feces (principal); R32 Unspecified urinary incontinence; M51.36 Other intervertebral disc degeneration, lumbar region
CPT/HCPCS: 72148

== ENCOUNTER 2023-05-07 06:53 | Outpatient (CLI) | payer OTHER, SELFPAY ==
--- NOTE | 2023-05-07 07:15 | MR_ITS ---
WS: [id number] MRI BRAIN WITHOUT CONTRAST HISTORY: pain and incontinence COMPARISON: None available. TECHNIQUE: Diffusion imaging, multiplanar T1, T2 and FLAIR imaging obtained. No evidence for acute infarct or hemorrhage. Funk-white matter differentiation is normal. No remote or acute infarcts are volume loss. Normal size ventricles. There is a large retrocerebellar arachnoid cyst mildly displacing the cerebel lum anteriorly. Arachnoid cyst measures 2.8 x 4.2 cm and extends over a length of 5.4 cm. No inferior displacement tonsils. The sella turcica and pituitary gland are unremarkable. Dural venous sinuses and [place] of [place] demonstrate no abnormality on this unenhanced studies. Paranasal sinuses: Clear. Mastoid air cells: Normal. Calvarium and scalp: Intact. IMPRESSION: 1. Normal diffusion imaging. No infarct. 2. No prior infarct or volume loss. 3. Large retrocerebellar arachnoid cyst measures 2.8 x 4.2 x 5.4 cm.
--- NOTE | 2023-05-07 08:00 | MR_ITS ---
WS: [id number] MRI CERVICAL SPINE NONCONTRAST HISTORY: pain and incontinence COMPARISON: None available. Technique: Multiplanar, multisequence noncontrast imaging of the cervical spine. Normal cervical alignment. Very minimal disc desiccation without narrowing. No marrow edema or fractu re Signal within the cord is normal. No cord atrophy or edema. Reidentified is a retrocerebellar arachno id cyst that was described by MRI brain. Craniocervical junction, C1 and C2 relationship, odontoid process and soft tissues are normal. C2-C3: Normal. C3-C4: Mild osteophytic ridging with mild disc bulging. No stenosis. C4-C5: Mild annular disc bulging mild osteophytic ridging. No stenosis per C5-C6: Mild annular disc bulging and osteophytic ridging. Very shallow central disc protrusion. There is mild central stenosis. Mild bilateral foraminal narrowing due to osteophyte disease. C6-C7: Mild annular disc bulging and osteophytic ridging. C7-T1: Normal. Paraspinal soft tissue are normal. IMPRESSION: 1. No high-grade central or foraminal stenosis. 2. Mild annular disc bulging at C4-5 through C6-7. 3. Very mild central and bilateral foraminal stenosis at C5-6. 4. Shallow central disc protrusion at C5-6.
== END 2023-05-07 06:54 | disposition home or self-care (01) ==
PROVIDERS: PCP Family Medicine Adult Medicine; Visit Provider Family Medicine Adult Medicine
DX: R32 Unspecified urinary incontinence (principal); R15.9 Full incontinence of feces; M54.50 Low back pain, unspecified; M50.321 Other cervical disc degeneration at C4-C5 level; M48.02 Spinal stenosis, cervical region; G93.0 Cerebral cysts
CPT/HCPCS: 70551; 72141

== ENCOUNTER 2023-08-17 13:38 | Emergency (ER) | payer OTHER, SELFPAY ==
[2023-08-17 13:41] VITALS: BP 145/96; PULSE 76; RESP 18; TEMP 37; O2SAT 100; BMI 26.4
--- NOTE | 2023-08-17 15:15 | W.ED.PSYCHS ---
HPI - Psych General: Chief Complaint: Psychiatric Symptoms Stated Complaint: PSYCH EVAL Time Seen by Provider: 08/17/23 13:40 History of Present Illness: 38-year-old male presents emergency department escorted by police department via after having a domestic altercation with his yesterday. Patient does have a history of bipolar disorder and was drinking last night and made suicidal statements at that time. Patient is very cooperative at present. He states he is not suicidal that he was just intoxicated and he wishes he would have never said that. He states he does have a drinking problem and is willing to go to the [facility] for additional evaluation treatment and long-term treatment of his alcohol abuse. He states he would like to have the shot that causes him to be sick if he drinks. He states that he is made too many mistakes between yesterday and today that is causing him significant stress and is preventing him from being with his children and his . Associated symptoms: Reports suicidal ideation; Deny auditory hallucinations, visual hallucinations or homicidal ideation Review of Systems General: Reports: 10 or more systems reviewed and unremarkable except in HPI and below Psych: Reports: mood swings and suicidal ideation; Denies: visual hallucinations, auditory hallucinations, tactile hallucinations or homicidal ideation [facility] ED PFSH: Medical History (Updated 08/17/23 @ 15:21 by Viral Douglas MD) Acute viral syndrome Tick-borne disease Urinary and bowel incontinence Low back pain associated with a spinal disorder other than radiculopathy or spinal stenosis Anxiety and depression Varicocele Smoker unmotivated to quit 1.5 ppd since age 16 Asthma Cervical radicular pain Surgical History History of open reduction and internal fixation (ORIF) procedure right femur History of hand surgery right 2014 History of esophagogastroduodenoscopy (EGD) (~05/2020) History of surgery on upper extremity History of surgery on extremity Family History Other Cancer Diabetes Heart disease Hypertension Psychiatric illness Social History Smoking and tobacco/nicotine status: current every day tobacco/nicotine user cigarettes Packs smoked per day: 1.5 Years cigarettes smoked: 14 Alcohol intake: current Alcohol intake frequency: few times a week Substance/Drug Use: never Marital status: Number of children: 7 Current occupational status: employed Current occupation: [employer] Current gender identity: Male Physical Exam Narrative: EXAM NARRATIVE: Constitutional: the patient appears well nourished and of normal development. Vital signs as documented. No acute distress at present. Alert and oriented-to person, place, time and situation. Head, eyes, ears, nose, mouth, throat: Normocephalic, atraumatic. Pupils-equal, round, reactive to light. No scleral icterus. Normal-appearing external ears. Normal appearing nasal turbinates, no drainage. No obvious oral lesions, posterior oropharynx without erythema or exudates. Neck: Supple, trachea is midline, no lymphadenopathy, no jugular venous distension, thyromegaly, or carotid bruits. Carotid upstrokes are brisk bilaterally. Lungs: clear to auscultation to all lung kohler. Symmetrical rise and fall of chest, no obvious signs of increased work of breathing at present. Cardiac: Regular rate and rhythm, positive S1, S2. No murmurs, rubs or gallops that I can appreciate Abdomen: Soft, non-tender to palpation, normal active bowel sounds to all quadrants. No palpable masses, no organomegaly and abdominal bruits. Extremities: 2+ pulses in the upper extremities that are equal bilaterally, 2+ pulses in the lower extremities that are equal bilaterally. Non-edematous. Moves all extremities well, sensation to all extremities are noted. Skin: Warm, dry, intact. Psych: Calm, cooperative, remorseful, no lethality noted. Course Vital Signs: Vital signs: Vital Signs Temperature 98.6 F 08/17/23 13:41 Pulse Rate 76 08/17/23 13:41 Respiratory Rate 18 08/17/23 13:41 Blood Pressure 145/96 08/17/23 13:41 Pulse Oximetry 100 08/17/23 13:41 Oxygen Delivery Me thod Room Air 08/17/23 13:41 MDM - Psych Medical Decision Making Physical exam completed I had a extensive discussion with the patient is now in police custody and does not appear to be homicidal or suicidal. He states that he does not not wish to be admitted to the hospital and request that we do not do labs. He did request that I contact the psychiatric physician on-call to discuss possible follow-up to receive a shot to help him stop drinking. And I did contact Dr. Montalvo to discuss the patient's case and Dr. Montalvo advised me to contact the patient's with the patient's endorsement that we could glean information from her. I did contact the patient's and she stated that she did not feel that he was a harm to himself or others at present but stated that she did not want him to come to the house because she was advised by child protective services that he was unable to return to the house and that the children had to be removed from the residence until further investigation occurred. I advised the patient of this information and he did agree to not return to his place of residence and that he would contact the [email or web address] tomorrow to discuss with Dr. Montalvo getting treatment for alcohol abuse. Medical Records I reviewed the patient's medical records. No radiology studies performed this visit Discharge Plan Discharge Patient Disposition: Home Clinical Impression: Alcohol abuse, No suicidal thoughts Condition: Stable Prescriptions: No Action ondansetron HCl 4 mg tablet 4 mg PO Q6H PRN (Reason: nausea and vomiting) Qty: 14 0RF aripiprazole 10 mg tablet 10 mg PO BEDTIME Qty: 30 5RF albuterol sulfate [Ventolin HFA] 90 mcg/actuation HFA aerosol inhaler 2 puff inhalation Q6H PRN (Reason: shortness of breath or wheezing) Qty: 8.5 0RF celecoxib 200 mg capsule 200 mg PO BID PRN (Reason: pain) Qty: 60 3RF Discharge Orders: Discharge ED (Routine); Ordered 08/17/23 Ordered By: Viral Douglas Referrals: Walter Farrell MD [Primary Care Provider] - Discharge Diet: Advance as tolerated Discharge Activity: Resume usual activity Patient Instructions: Opioid Safety, Pain Management Activity Restrictions/Additional Instructions: Call tomorrow to make an appointment with Dr. Renny Montalvo-psychiatry at [facility] at [phone]. Coding Level of Care Code ED [place] Planning Manager for Nahun [place]
== END 2023-08-17 15:36 | disposition home or self-care (01) ==
PROVIDERS: Emergency Provider Internal Medicine; PCP Family Medicine Adult Medicine
DX: F10.10 Alcohol abuse, uncomplicated (principal); Z72.0 Tobacco use
CPT/HCPCS: 99283

== ENCOUNTER 2023-10-17 07:42 | Oncology outpatient (recurring) (ONCR) | payer OTHER, SELFPAY ==
[2023-10-17 07:59] VITALS: BP 133/76; PULSE 68; RESP 16; TEMP 36.4; O2SAT 98
[2023-10-17] MEDS: ondansetron 2 mg/ML SDV 2 mL 4 MG IVP (08:13)
[2023-10-17] MEDS: diphenhydrAMINE 50 mg/mL SDV 1mL 25 MG IVP (08:17)
[2023-10-17] MEDS: dihydroergotamine 1 mg/mL Inj 0.5 MG IVP ×5 (08:27→10:30)
--- NOTE | 2023-10-17 08:29 | PC.NURSE ---
patient reports pain 8/10 with migraine, DHE protocol started
--- NOTE | 2023-10-17 09:02 | PC.NURSE ---
patient reports pain level 7/10 with migraine, next dose of DHE given per protocol
[2023-10-17 09:03] VITALS: BP 128/83; PULSE 50; RESP 16; O2SAT 99
--- NOTE | 2023-10-17 09:32 | PC.NURSE ---
patient reports pain level 6/10 with migraine, next dose to DHE given
[2023-10-17 09:34] VITALS: BP 134/86; PULSE 51; RESP 16; O2SAT 99
--- NOTE | 2023-10-17 10:04 | PC.NURSE ---
patient reports pain 5/10 with migraine, next dose of DHE given per protocol
[2023-10-17 10:05] VITALS: BP 125/84; PULSE 50; RESP 16; O2SAT 98
--- NOTE | 2023-10-17 10:31 | PC.NURSE ---
patient reports pain level of 3/10, next dose of DHE given per protocol
[2023-10-17 10:32] VITALS: BP 137/88; PULSE 50; RESP 16; O2SAT 99
[2023-10-17 10:49] VITALS: BP 142/92; PULSE 50; RESP 16; O2SAT 99
--- NOTE | 2023-10-17 10:53 | PC.NURSE ---
patient reports that he is no longer in pain, patient discharged from clinic
== END 2023-11-02 23:59 | disposition home or self-care (01) ==
LOC: ONCMED 07:43
PROVIDERS: PCP Family Medicine Adult Medicine; Visit Provider Specialist
DX: G43.909 Migraine, unspecified, not intractable, without status migrainosus (principal)
CPT/HCPCS: 96375; J1110; J1200; J2405

== ENCOUNTER → 2023-11-04 09:54 | Outpatient (BNVA) | payer OTHER, SELFPAY | PROVIDERS: PCP Family Medicine Adult Medicine; Visit Provider Family Medicine Adult Medicine | DX: F41.9 Anxiety disorder, unspecified (principal); J45.909 Unspecified asthma, uncomplicated; N52.9 Male erectile dysfunction, unspecified; F33.2 Major depressive disorder, recurrent severe without psychotic features; F32.A Depression, unspecified | CPT/HCPCS: 80053; 84403; 84443; 85025 ==

== ENCOUNTER → 2023-11-21 13:53 | Outpatient (BNVA) | payer OTHER, SELFPAY | PROVIDERS: PCP Family Medicine Adult Medicine; Visit Provider Psychiatry & Neurology Psychiatry | DX: F19.20 Other psychoactive substance dependence, uncomplicated (principal); Z79.899 Other long term (current) drug therapy | CPT/HCPCS: 80307 ==

== ENCOUNTER 2023-11-30 12:07 | Emergency (ER) | payer OTHER, SELFPAY ==
--- NOTE | 2023-11-30 12:11 | XRR_ITS ---
PROCEDURE INFORMATION: Exam: XR Right Foot Exam date and time: 11/30/2023 12:30 PM Age: 38 years old Clinical indication: Swelling, leg or foot; Patient HX: Red and swollen; Additional info: Injury TECHNIQUE: Imaging protocol: Radiologic exam of the right foot. Views: 3 or more views. COMPARISON: [place] [id number] ORTH 12/28/2019 2:34 PM FINDINGS: Bones/joints: Normal. Soft tissues: Normal. XR/XR foot RT min 3V* [id number] IMPRESSION: No acute findings.
[2023-11-30 12:24] VITALS: BP 128/83; PULSE 69; RESP 15; TEMP 36.6; O2SAT 99
--- NOTE | 2023-11-30 13:02 | W.ED.EXTPRO ---
HPI - Extremity Problem General: Chief complaint: Extremity Problem,Nontraumatic Stated complaint: rt foot inj Time Seen by Provider: 11/30/23 13:00 History of Present Illness: 38-year-old male patient comes in today with erythema and tenderness to the dorsal right foot. Patient reports symptoms started on Friday. Patient appears nontoxic. Patient has tenderness at the site of redness. Patient is nondiabetic. Patient does have a history of substance use disorder and asthma. Patient does continue to use tobacco. Review of Systems General: Reports: 10 or more systems reviewed and unremarkable except in HPI and below Musc: Reports: extremity pain (Right dorsal foot) PFSH ED PFSH: Medical History Testosterone deficiency in male Erectile dysfunction Polysubstance dependence Past history of heroin, methamphetamine, cocaine, cannabis, smoking, and alcohol abuse Headache with remote history of traumatic head injury Psychiatric care Low back pain associated with a spinal disorder other than radiculopathy or spinal stenosis Anxiety and depression Varicocele Smoker unmotivated to quit 1.5 ppd since age 16 Asthma Cervical radicular pain Surgical History History of open reduction and internal fixation (ORIF) procedure right femur History of hand surgery right 2015 History of esophagogastroduodenoscopy (EGD) (~05/2020) History of surgery on upper extremity History of surgery on extremity Family History Other Cancer Diabetes Heart disease Hypertension Psychiatric illness Social History Smoking and tobacco/nicotine status: current every day tobacco/nicotine user (1PPD x 27yrs) cigarettes Packs smoked per day: 1.5 Years cigarettes smoked: 14 Alcohol intake: current Alcohol intake frequency: few times a week Substance/Drug Use: never Marital status: Number of children: 7 Current occupational status: employed Current occupation: Storage Facility Rental Clerk Current gender identity: Male Physical Exam Const: COMMON NORMALS: alert HENMT: COMMON NORMALS: normocephalic HEAD & SCALP: normocephalic Neck/C-Spine: COMMON NORMALS: full ROM Chest: COMMONS NORMALS: normal palpation of entire chest wall Resp: COMMON NORMALS: normal respiratory effort and clear to auscultation bilaterally AUSCULTATION: clear to auscultation bilaterally Cardio: COMMON NORMALS: regular rate and regular rhythm RATE: regular rate RHYTHM: regular rhythm GI: COMMON NORMALS: Soft to palpation PALPATION: Yes Soft to palpation Back/Pelvis: COMMON NORMALS: thoracic and lumbar spine normal to inspection Extremity: RIGHT LOWER EXTREMITY: Yes foot & digits (Dorsal redness to the right foot. Distal cap refill and sensation intact.) Neuro: SENSORIUM/ORIENTATION: Yes alert Skin: NARRATIVE SKIN EXAM: Redness of the dorsal foot. Course Vital Signs: Vital signs: Vital Signs Temperature 97.8 F 11/30/23 12:24 Pulse Rate 69 11/30/23 12:24 Respiratory Rate 15 11/30/23 12:24 Blood Pressure 128/83 11/30/23 12:24 Pulse Oximetry 99 11/30/23 12:24 Oxygen Delivery Me thod Room Air 11/30/23 12:24 MDM - Extremity (Nontraumatic) Medical Decision Making 38-year-old male patient comes in today for complaints of redness and swelling to dorsal foot. On exam patient appears nontoxic. Patient does endorse chills and night sweats. Symptoms been going on since Friday. Patient was seen at urgent care and started on Bactrim. Patient does have a family history of gout. Vital signs are normal. Differential that includes cellulitis, localized reaction to insect bite, gouty arthritis, DVT. X-ray of the foot noted no abnormality. Ultrasound noted a echogenic area that possibly could be a foreign body although patient does not report any foreign body introduced into the area. CBC CMP is unremarkable. Patient does have some mild elevation in sed rate and CRP but not significant for anything. Uric acid was normal. We will treat patient for a cellulitis by adding a second antibiotic. Patient reported understanding agreed to plan. Lab Data 11/30/23 13:17 11/30/23 13:17 Radiology Impressions Foot X-Ray 11/30/23 12:11 IMPRESSION: No acute findings. Venous Duplex 11/30/23 13:09 IMPRESSION: 1. No evidence of deep vein thrombosis. 2. Small focal complex fluid collection in the right anterior foot soft tissues, measuring 1.5 x 0.5 x 0.3 cm, with a questionable linear retained foreign body measuring up to 1.3 cm. Audio Visual Specialist reports that this site is red and is the source of the patient's pain. This could potentially represent a small retained foreign body. Laboratory Results WBC 8.96 10^3/uL (3.29-11.43) 11/30/23 13:17 RBC 5.27 10^6/uL (3.85-5.65) 11/30/23 13:17 Hgb 15.30 g/dL (11.27-16.99) 11/30/23 13:17 Hct 45.9 % (37-53) 11/30/23 13:17 MCV 87.1 fl (82-101) 11/30/23 13:17 MCH 29.0 pg (27-33) 11/30/23 13:17 MCHC 33.3 g/dL (30-55) 11/30/23 13:17 RDW 12.4 % (12.1-15.1) 11/30/23 13:17 Plt Count 312 10^3/cmm (157-399) 11/30/23 13:17 MPV 9.9 fL (7.4-10.4) 11/30/23 13:17 Neut % (Auto) 62.4 % 11/30/23 13:17 Lymph % (Auto) 22.5 % 11/30/23 13:17 Gonzales % (Auto) 11.5 % 11/30/23 13:17 Eos % (Auto) 2.8 % 11/30/23 13:17 Baso % (Auto) 0.4 % 11/30/23 13:17 Neut # (Auto) 5.58 10^3/uL (1.8-7.7) 11/30/23 13:17 Lymph # (Auto) 2.0 10^3/uL (0.8-4.8) 11/30/23 13:17 Gonzales # (Auto) 1.0 10^3/uL (0.2-0.9) H 11/30/23 13:17 Eos # (Auto) 0.3 10^3/uL (0.0-0.8) 11/30/23 13:17 Baso # (Auto) 0.0 10^3/uL (0.0-0.1) 11/30/23 13:17 Nucleated RBC % (auto) 0 % 11/30/23 13:17 Nucleated RBCs # 0.0 /100WBC 11/30/23 13:17 ESR 15 mm/hr (0-10) H 11/30/23 13:17 Sodium 137 mmol/L (136-145) 11/30/23 13:17 Potassium 4.4 mmol/L (3.5-5.1) 11/30/23 13:17 Chloride 102 mmol/L (98-107) 11/30/23 13:17 Carbon Dioxide 24 mmol/L (22-29) 11/30/23 13:17 Anion Gap 15.4 (5-19) 11/30/23 13:17 BUN 10 mg/dL (6-20) 11/30/23 13:17 Creatinine 1.1 mg/dL (0.7-1.2) 11/30/23 13:17 GFR Calculation 75.7 mL/min (90-130) L 11/30/23 13:17 Glucose 103 mg/dL (65-115) 11/30/23 13:17 Calculated Osmolality 283 mOsm/kg (285-295) L 11/30/23 13:17 Lactic Acid 1.1 mmol/L (0.5-2.2) 11/30/23 13:17 Uric Acid 5.1 mg/dL (3.4-7.0) 11/30/23 13:17 Calcium 9.2 mg/dL (8.5-10.5) 11/30/23 13:17 Total Bilirubin 0.4 mg/dL (0.15-1.2) 11/30/23 13:17 AST 19 U/L (0-40) 11/30/23 13:17 ALT 20 U/L (0-41) 11/30/23 13:17 Alkaline Phosphatase 82 U/L (40-130) 11/30/23 13:17 C-Reactive Protein 15.8 mg/L (0.0-4.9) H 11/30/23 13:17 Total Protein 7.6 g/dL (6.6-8.7) 11/30/23 13:17 Albumin 4.2 g/dL (3.5-5.2) 11/30/23 13:17 Globulin 3.4 g/dL (1.3-4.6) 11/30/23 13:17 All radiology interpretation(s) finalized by discharge Discharge Plan Discharge Patient Disposition: Home Clinical Impression: Cellulitis Qualifiers: Site of cellulitis: extremity Site of cellulitis of extremity: lower extremity Laterality: right Qualified Code(s): L03.115 - Cellulitis of right lower limb Condition: Stable Prescriptions: New amoxicillin-pot clavulanate 875-125 mg tablet 1 tab PO BID Qty: 14 0RF ketorolac 10 mg tablet 10 mg PO Q6H PRN (Reason: pain) 5 Days Qty: 15 0RF No Action ondansetron 4 mg tablet,disintegrating 4 mg PO Q6H PRN (Reason: nausea and vomiting) Qty: 30 0RF duloxetine [Cymbalta] 30 mg capsule,delayed release(DR/EC) 30 mg PO DAILY Qty: 30 2RF risperidone [Risperdal] 0.5 mg tablet 0.5 mg PO BID Qty: 60 2RF buprenorphine-naloxone 2-0.5 mg tablet, sublingual 2 tab sublingual BID Qty: 120 2RF sildenafil 50 mg tablet 50 mg PO DAILY PRN (Reason: sexual activity) Qty: 20 1RF Rx Instructions: administer 30 minutes to 4 hours before activity sulfamethoxazole-trimethoprim [Bactrim DS] 800-160 mg tablet 1 tab PO BID 10 Days Qty: 20 0RF mupirocin 2 % ointment 1 applic topical TID Qty: 22 0RF ibuprofen 800 mg tablet 800 mg PO Q8H PRN (Reason: pain) Qty: 45 0RF albuterol sulfate [Ventolin HFA] 90 mcg/actuation HFA aerosol inhaler 2 puff inhalation Q6H PRN (Reason: shortness of breath or wheezing) Qty: 8.5 0RF celecoxib 200 mg capsule 200 mg PO BID PRN (Reason: pain) Qty: 60 3RF testosterone cypionate [Depo-Testosterone] 100 mg/mL oil 100 mg IM .q 14 days Qty: 10 0RF Discharge Orders: Discharge ED (Routine); Ordered 11/30/23 Ordered By: Luis Angel Blake Referrals: Walter Farrell MD [Primary Care Provider] - Discharge Diet: Usual diet Discharge Activity: Increase activity as tolerated Patient Instructions: Cellulitis (ED) Activity Restrictions/Additional Instructions: Home and rest. Elevate foot is much as possible. Use acetaminophen to help control pain. Take ketorolac 10 mg 4 times a day for further pain relief. Take sulfamethoxazole and trimethoprim twice a day as ordered, add Augmentin, amoxicillin with potassium clavulanate, 1 tablet twice a day. Drink plenty of water with medications. Follow-up with primary care in 2 to 3 days for recheck. Return to ED for worsening symptoms such as high fever, severe headache, inability to hold fluids down. 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
--- NOTE | 2023-11-30 13:09 | USR_ITS ---
PROCEDURE INFORMATION: Exam: US Duplex Right Lower Extremity Veins, Limited Exam date and time: 11/30/2023 1:38 PM Age: 38 years old Clinical indication: Edema, localized; Lower extremity, right; Additional info: Redness swelling leg TECHNIQUE: Imaging protocol: Real-time duplex ultrasound of the right extremity with 2-D pond scale, color Doppler flow and spectral waveform analysis including responses to compression and other maneuvers (when performed) with image documentation. Limited exam was focused on the right lower extremity veins. COMPARISON: US scrotum [id number] 09/12/2021 1:38 PM FINDINGS: Right deep veins: Unremarkable. The common femoral, femoral, proximal profunda femoral and popliteal veins are patent without thrombus. Normal Doppler waveforms. Normal compressibility and/or augmentation response. Superficial veins: Greater saphenous vein at the saphenofemoral junction is patent without thrombus. Soft tissues: Small focal complex fluid collection in the right anterior foot soft tissues, measuring 1.5 x 0.5 x 0.3 cm. Film Developing Machine Operator reports that this site is red and is the source of the patient's pain. US/[place] [id number] IMPRESSION: 1. No evidence of deep vein thrombosis. 2. Small focal complex fluid collection in the right anterior foot soft tissues, measuring 1.5 x 0.5 x 0.3 cm, with a questionable linear retained foreign body measuring up to 1.3 cm. Film Developing Machine Operator reports that this site is red and is the source of the patient's pain. This could potentially represent a small retained foreign body.
[2023-11-30] MEDS: ketorolac 30 mg/mL INJ 15 MG IVP (13:44)
[2023-11-30 13:48] LABS: Basophils % 0.4 %; Eosinophils # 0.3 10^3/uL (0.0-0.8); Eosinophils % 2.8 %; Hematocrit 45.9 % (37-53); Lymphocytes % 22.5 %; Mean Corpuscular HGB Conc 33.3 g/dL (30-55); Mean Corpuscular Volume 87.1 fl (82-101); Mean Platelet Volume 9.9 fL (7.4-10.4); Monocytes % 11.5 %; Neutrophils # 5.58 10^3/uL (1.8-7.7); Neutrophils % 62.4 %; Nucleated Red Blood Cells % 0 %; Platelet Count 312 10^3/cmm (157-399); Red Blood Count 5.27 10^6/uL (3.85-5.65); Red Cell Distribution Width 12.4 % (12.1-15.1); White Blood Count 8.96 10^3/uL (3.29-11.43)
[2023-11-30 13:56] LABS: Erythrocyte Sedimentation Rate 15 mm/hr (0-10)
[2023-11-30 14:10] LABS: Lactic Sepsis W/Reflex 1.1 mmol/L (0.5-2.2)
[2023-11-30 14:11] LABS: Alanine Aminotransferase 20 U/L (0-41); Albumin Level 4.2 g/dL (3.5-5.2); Alkaline Phosphatase 82 U/L (40-130); Anion Gap 15.4 (5-19); Aspartate Amino Transferase 19 U/L (0-40); Blood Urea Nitrogen 10 mg/dL (6-20); C Reactive Protein 15.8 mg/L (0.0-4.9); Calcium 9.2 mg/dL (8.5-10.5); Carbon Dioxide 24 mmol/L (22-29); Chloride 102 mmol/L (98-107); Creatinine Clr Calc Pharmacy 109.2662; Globulin 3.4 g/dL (1.3-4.6); Glomerular Filtration Rate 75.7 mL/min (90-130); Glucose 103 mg/dL (65-115); Osmolality Calculated 283 mOsm/kg (285-295); Potassium 4.4 mmol/L (3.5-5.1); Sodium 137 mmol/L (136-145); Total Bilirubin 0.4 mg/dL (0.15-1.2); Total Protein 7.6 g/dL (6.6-8.7); Uric Acid 5.1 mg/dL (3.4-7.0)
[2023-11-30 14:29] VITALS: BP 109/61; PULSE 60; RESP 17; O2SAT 97
[2023-11-30] MEDS: vancomycin 1,000 MG in sodium chloride 0.9% 250 ML 250 MG IV (14:37)
[2023-11-30 15:54] VITALS: BP 109/61; PULSE 60; RESP 17; TEMP 36.6; O2SAT 97
== END 2023-11-30 15:55 | disposition home or self-care (01) ==
PROVIDERS: Emergency Provider Nurse Practitioner Family; PCP Family Medicine Adult Medicine
DX: L03.115 Cellulitis of right lower limb (principal); F17.210 Nicotine dependence, cigarettes, uncomplicated
CPT/HCPCS: 36415; 73630; 80053; 83605; 84550; 85025; 85651; 86140; 87040; 93971; 96365; 96375; 99284; J1885; J3370; J7050

== ENCOUNTER 2023-12-05 07:45 | Outpatient (CLI) | payer OTHER, SELFPAY ==
--- NOTE | 2023-12-05 08:00 | MR_ITS ---
WS: [id number] MRI HEAD WITHOUT CONTRAST TECHNIQUE: Sagittal T1, T2 axial, T2 axial FLAIR, axial and coronal T1 images, axial susceptibility w eighted imaging, axial diffusion weighted images, and coronal T2 images were obtained. CLINICAL INFORMATION: R29.90 - Unspecified symptoms and signs involving the ner... COMPARISON: MRI 05/07/2023 FINDINGS: No evidence of restricted diffusion to suggest acute ischemia. Ventricular system and basilar cistern s are patent. 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 This measures approximately 2.7 x 4.0 x 5.2 cm stable compared to p revious. Normal fourth ventricle. No hydrocephalus. Normal vascular flow voids at the skull base. No extra-axi al fluid collections. No evidence of mass or mass effect. Paranasal sinuses and mastoid air cells are well aerated. Normal posterior nasopharynx. No hemosiderin on susceptibility-weighted images. Normal optic chiasm and pituitary infundibulum. Tem poral lobes and hippocampal formations are normal in appearance. No other suspicious intracranial sig nal abnormalities. MR/MR head wo con* [id number] IMPRESSION: 1. No change in the previously described retrocerebellar arachnoid cyst descri bed above. 2. Normal fourth ventricle. No hydrocephalus. 3. No restricted diffusion to suggest acute ischemia. 4. No hemosiderin on susceptibility-weighted images. 5. No other suspicious intracranial signal abnormalities.
== END 2023-12-05 07:46 | disposition home or self-care (01) ==
LOC: RAD 07:46
PROVIDERS: PCP Family Medicine Adult Medicine; Visit Provider Specialist
DX: R29.90 Unspecified symptoms and signs involving the nervous system (principal)
CPT/HCPCS: 70551

== ENCOUNTER → 2024-02-20 13:08 | Outpatient (BNVA) | payer OTHER, SELFPAY | PROVIDERS: PCP Family Medicine Adult Medicine; Visit Provider Psychiatry & Neurology Psychiatry | DX: F19.20 Other psychoactive substance dependence, uncomplicated (principal); Z79.899 Other long term (current) drug therapy | CPT/HCPCS: 80307 ==

== ENCOUNTER → 2024-06-04 11:29 | Outpatient (BNVA) | payer OTHER, SELFPAY | PROVIDERS: PCP Family Medicine Adult Medicine; Visit Provider Psychiatry & Neurology Psychiatry | DX: F19.20 Other psychoactive substance dependence, uncomplicated (principal); Z79.899 Other long term (current) drug therapy | CPT/HCPCS: 80307 ==

== ENCOUNTER → 2024-08-27 11:42 | Outpatient (BNVA) | payer OTHER, SELFPAY | PROVIDERS: PCP Family Medicine Adult Medicine; Visit Provider Psychiatry & Neurology Psychiatry | DX: F19.20 Other psychoactive substance dependence, uncomplicated (principal); Z79.899 Other long term (current) drug therapy | CPT/HCPCS: 80307 ==

== ENCOUNTER → 2024-11-19 15:49 | Outpatient (BNVA) | payer OTHER, SELFPAY | PROVIDERS: PCP Family Medicine Adult Medicine; Visit Provider Psychiatry & Neurology Psychiatry | DX: F19.20 Other psychoactive substance dependence, uncomplicated (principal); Z79.899 Other long term (current) drug therapy; F33.2 Major depressive disorder, recurrent severe without psychotic features; F41.1 Generalized anxiety disorder; F43.12 Post-traumatic stress disorder, chronic | CPT/HCPCS: 80307 ==

== ENCOUNTER → 2025-02-11 10:39 | Outpatient (BNVA) | payer OTHER, SELFPAY | PROVIDERS: PCP Family Medicine Adult Medicine; Visit Provider Psychiatry & Neurology Psychiatry | DX: Z79.899 Other long term (current) drug therapy (principal); F43.12 Post-traumatic stress disorder, chronic; F41.1 Generalized anxiety disorder; F33.2 Major depressive disorder, recurrent severe without psychotic features; F19.20 Other psychoactive substance dependence, uncomplicated | CPT/HCPCS: 80307 ==

== ENCOUNTER → 2025-05-06 11:13 | Outpatient (BNVA) | payer OTHER, SELFPAY | PROVIDERS: PCP Family Medicine Adult Medicine; Visit Provider Psychiatry & Neurology Psychiatry | DX: F43.12 Post-traumatic stress disorder, chronic (principal); F41.1 Generalized anxiety disorder; F33.2 Major depressive disorder, recurrent severe without psychotic features; Z79.899 Other long term (current) drug therapy; F19.20 Other psychoactive substance dependence, uncomplicated | CPT/HCPCS: 80307 ==

== ENCOUNTER 2025-05-27 01:47 | Emergency (ER) | payer OTHER, SELFPAY ==
--- OUTSIDE RECORDS SUMMARY | 2025-05-27 01:53 | XMS_ITS | Clinical Summary ---
Author Organization [facility] Address [address] [place] [address] Care Team Providers Care Supervisor Bridges And Buildings Name Role Phone Unavailable Primary Care Provider Unavailabl e Allergies No known active allergies Medications gabapentin (NEURONTIN) 100 mg capsuleIndicati ons:Neck pain Take 1 Capsule (100 mg) by mouth 3 times daily. 90 Capsule 0 11/17/2020 Active gabapentin (NEURONTIN) 300 mg capsule Take 1 Capsule (300 mg) by mouth 3 times daily. 90 Capsule 3 11/03/2020 Active chlorzoxazone (PARAFON FORTE) 500 mg tabletIndicatio ns:Neck pain Take 1 Tablet (500 mg) by mouth 3 times daily as needed for Spasm. 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 Gender Identity Not on file Sexual Orientation Not on file Last Filed Vital Signs Vital Sign Reading Time Taken Comments Blood Pressure 119/53 11/17/2020 7:57 AM CDT Pulse 65 11/03/2020 9:07 AM CDT Temperature 36.7 C (98 F) 11/17/2020 6:44 AM CDT Respiratory Rate 17 11/17/2020 7:57 AM CDT Oxygen Saturation - - Inhaled Oxygen Concentration - - Weight 79.7 kg (175 lb 9.6 oz) 11/17/2020 6:44 A M CDT Height 185.4 cm (6' 1 ) 11/17/2020 6:44 AM CDT Body Mass Index 23.17 11/17/2020 6:44 AM CDT Plan of Treatment Health Maintenance Due Date Last Done Comments DTAP/TDAP/TD VACCINES (2 - Tdap) 09/10/2002 09/09/19 03 HEPATITIS B VACCINES (1 of 3 - 19+ 3-dose series) 07/05 HPV VACCINES (1 - 3-dose SCDM series) 2014 INFLUENZA VACCINE (#1) 2025
--- OUTSIDE RECORDS SUMMARY | 2025-05-27 01:53 | XMS_ITS | Encounter Summary ---
Author Organization [facility] Address [address] [place] [address] Care Team Providers Care Thermal Cutter Hand Name Role Phone Unavailable Primary Care Provider Unavailabl e Encounter Details Date Type Department Care Team (Latest Contact Info) Description 10/17/[address] [facility] 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
--- OUTSIDE RECORDS SUMMARY | 2025-05-27 01:53 | XMS_ITS | Encounter Summary ---
Author Organization [facility] Address [address] [place] [address] Care Team Providers Care Teacher Counselor Name Role Phone Unavailable Primary Care Provider Unavailabl e Encounter Details Date Type Department Care Team (Late st Contact Info) Description 10/17/1999 Outpatient Historical [facility] N[facility] Throat 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
--- OUTSIDE RECORDS SUMMARY | 2025-05-27 01:53 | XMS_ITS | Encounter Summary ---
Author Organization [facility] Address [address] [place] [address] Care Team Providers Care Power Barker Operator Name Role Phone Unavailable Primary Care Provider Unavailabl e Encounter Details Date Type Department Care Team (Latest Contact Info) Description 04/25/2008 Outpatient Historical [facility] 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 No stones are seen in the ureters or along the pelvic floor. The bowel gas pattern and structures seen are unremarkable. Impression: Unremarkable study. - Dictated By: Stanton Gee M.D. Electronically Signed By: Stanton Gee M.D. Date Signed: 04/25/08 Procedure Note Stanton Gee - 04/25/2008 No stones are identified overlying either kidney. No stones are seen inthe ureters or along the pelvic floor. The bowel gas pattern and structures seen are unremarkable. Impression: Unremarkable study. - Dictated By: Stanton Gee M.D. Electronically Signed By: Stanton Gee M.D. Date Signed: 04/25/08 us Dagoberto Mcadams MD DIAGNOSTIC IMAGING ORDERABL ES Final Result documented in this encounter Visit Diagnoses Diagnosis Calculus of kidney documented in this encounter
--- OUTSIDE RECORDS SUMMARY | 2025-05-27 01:53 | XMS_ITS | Clinical Summary ---
Author Organization [facility] Address [address] [place] [address] Care Team Providers Care Test Pilot Name Role Phone Unavailable Primary Care Provider Unavailabl e Allergies No known active allergies Medications gabapentin (NEURONTIN) 300 mg capsule Take 1 Capsule (300 mg) by mouth 3 times daily. 90 Capsule 3 11/03/2020 Active chlorzoxazone (PARAFON FORTE) 500 mg tabletIndicatio ns:Neck pain Take 1 Tablet (500 mg) by mouth 3 times daily as needed for Spasm. 90 Tablet 11/17/2020 Active gabapentin (NEURONTIN) 100 mg capsuleIndicati ons:Neck pain Take 1 Capsule (100 mg) by mouth 3 times daily. 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
--- OUTSIDE RECORDS SUMMARY | 2025-05-27 01:53 | XMS_ITS | Encounter Summary ---
Author Organization [facility] Address [address] [place] [address] Care Team Providers Care Assistant Professor Of Communication Name Role Phone Unavailable Primary Care Provider Unavailabl e Encounter Details Date Type Department Care Team (Late st Contact Info) Description 04/19/2008 Emergency [facility] Emergency Department [address] 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 Gender Identity Not on file Sexual Orientation Not on file documented as of this encounter Plan of Treatment Not on file documented as of this encounter Procedures Procedure Name Priority Date/Time Associated Diagnosis Comments PT AND APTT Stat 04/20/2008 1:[address] URINARY CALCULI WO CONTRAST Routine 04/20/2008 12:42 AM CDT CBC WITH DIFFERENTIAL Stat 04/19/2008 10:28 PM CDT BASIC METABOLIC PANEL Stat 04/19/2008 10:28 PM CDT URINALYSIS MICROSCOPY ONLY Stat 04/19/2008 9:01 PM CDT URINALYSIS W/REFLEX MICROSCOPIC Stat 04/19/2008 9:01 PM CDT documented in this encounter Results * PT AND APTT (04/20/2008 1:52 AM CDT) PTT 32.3 22.5 - 36.5 Secs [facility] Comment: Therapeutic Range: Hi-level PE/DVT heparin protocol 80.1 -95.0 sec Lo-level PE/DVT heparin protocol 67.1 - 80.0 sec Cardiac Heparin Protocol 67.1 - 85.0 sec Neuro Heparin Protocol 67.1 - 80.0 sec As of 10/22/2007 note change in APTT Normal Range. PROTIME 14.1 12.8 - 15.8 Secs [facility] Comment:As of 2007 not e change in normal range. INR 1.0 [facility] Comment: Expected Values for INR: DVT/PE Goal INR 2.5; range 2.0 - 3.0 Valve Replacement Tissue Goal INR 2.5; range 2.0 - 3.0 Mechanical Goal INR 3.0; range 2.5 - 3.5 POST-IN Goal INR 2.5; range 2.0 - 3.0 or Goal 3.0; range 2.5 - 3.5 Atrial Fibrillation Goal INR 2.5; range 2.0 - 3.0 Ischemic Stroke Goal INR 2.5; range 2.0 - 3.0 For additional information see Guidelines for Anticoagulation available from the pharmacy [facility]. [phone] Blood specimen (specimen) 04/20/2008 1:52 AM CDT 04/20/2008 1:52 AM CDT us Zane Tran MD HEMATOLOGY ORDERABLES Edited INTERFACE SYSTEM Refer to clinic/hospital department [facility] CLIA# [id number] Formerly [facility] [place] [address] * CT RENAL COLIC WO CONT (04/20/2008 12:42 AM CDT) Anatomical Region Laterality Modality Abdomen Other 04/20/2008 12:4 2 AM CDT Narrative 04/20/2008 1:[address] Scan For Renal Colic: Date: 04/20/2008 History: Hematuria. Procedure: A routine prone CT scan for renal colic was obtained. Findings: 1. The right kidney appears normal without hydronephrosis, perinephric stranding, or stones. The right ureter is not distended. There is no right ureteral stone. The left kidney has 3 or 4 less than 2 mm diameter stones. There is no hydronephrosis or perinephric stranding. There is no left ureteral stone. There are no stones within the urinary bladder. 2. The prostate and seminal vesicles are unremarkable. There is no identified abnormality of the colon. The appendix is identified and normal. The bowel is not distended. There is no identified abnormality of the right adrenal, pancreas, gallbladder, or partially included liver, spleen, and left adrenal. There is no free air, free fluid, or lymphadenopathy. The bones are intact. Impression: 3 or 4 tiny stones in the left kidney. No obstruction and no other urinary tract stones. - Dictated By: Avani Velasco M.D. Electronically Signed By: Avani Velasco M.D. Date Signed: 04/20/08 Procedure Note Avani Velasco R - 04/20/2008 CT Scan For Renal Colic: Date: 04/20/2008 History: Hematuria. Procedure: A routine prone CT scan for renal colic was obtained. Findings: 1. The right kidney appears normal without hydronephrosis, perinephricstranding, or stones. The right ureter is not distended. There is no right ureteral stone. The left kidneyhas 3 or 4 less than 2 mm diameter stones. There is no hydronephrosis or perinephric stranding.There is no left ureteral stone. There are no stones within the urinary bladder. 2. The prostate and seminal vesicles are unremarkable. There is noidentified abnormality of the colon. The appendix is identified and normal. The bowel is not distended. Thereis no identified abnormality of the right adrenal, pancreas, gallbladder, or partially included liver,spleen, and left adrenal. There is no free air, free fluid, or lymphadenopathy. The bones are intact. Impression: 3 or 4 tiny stones in the left kidney. No obstruction and noother urinary tract stones. - Dictated By: Avani Velasco M.D. Electronically Signed By: Avani Velasco M.D. Date Signed: 04/20/[address] ORDERABLES Final Result * (ABNORMAL) CBC WITH DIFFERENTIAL (04/19/2008 10:28 PM CDT) WBC 9.3 4.5 - 12.5 K/ul [facility] MCH 29.1 27.0 - 34.0 pg [facility] NEUTROPHIL ABSOLUTE 5.4 2.0 - 8.0 K/ul [facility] NEUTROPHILS 58.7 42.2 - 75.2 % [facility] HEMATOCRIT 46.6 41.0 - 53.0 % [facility] EOSINOPHILS 2.7 0.0 - 7.0 % [facility] PLATELETS 265 140 - 440 K/ul [facility] EOSINOPHIL ABSOLUTE 0.3 0.0 - 0.7 K/ul [facility] RBC 5.53 4.60 - 6.20 Mil/ul [facility] LYMPHOCYTES 29.1 24.0 - 44.0 % [facility] MCHC 34.5 30.0 - 35.0 g/dL [facility] LYMPHOCYTE ABSOLUTE 2.7 1.2 - 4.0 K/ul [facility] MCV 84.3 84.0 - 103.0 Fl [facility] MPV 9.2 8.9 - 12.8 Fl [facility] BASOPHILS ABSOLUTE 0.0 0.0 - 0.2 K/ul [facility] BASOPHILS 0.2 0.0 - 1.0 % [facility] HEMOGLOBIN 16.1 14.0 - 18.0 g/dL [facility] RDW 13.8 11.0 - 14.5 % [facility] MONOCYTE ABSOLUTE 0.9(H) 0.1 - 0.6 K/ul [facility] MONOCYTES 9.3 2.0 - 10.0 % [facility] Blood specimen (specimen) 04/19/2008 10:28 PM CDT 04/19/2008 10:28 PM CDT Physician Ed HEMATOLOGY ORDERABLES Final Resu lt Performing Organization Address [facility] Phone Number INTERFACE SYSTEM Refer to clinic/hospital department [facility] CLIA# [id number] [address] [place] [address] * (ABNORMAL) BASIC METABOLIC PANEL (04/19/2008 10:28 PM CDT) GLUCOSE 86 70 - 110 mg/dL [facility] CHLORIDE 106 95 - 110 mEq/L [facility] ANION GAP 13 9 - 20 mEq/L [facility] SODIUM 146(H) 136 - 145 mEq/L [facility] BUN 9 9 - 20 mg/dL [facility] CO2 32 22 - 32 mmol/l [facility] POTASSIUM 4.7 3.5 - 5.0 mEq/L [facility] OSMOLALITY, CALCULATED 298(H) 275 - 295 mOsm/Kg [facility] CREATININE 1.1 0.7 - 1.5 mg/dL [facility] CALCIUM 10.0 8.4 - 10.5 mg/dL [facility] Blood specimen (specimen) 04/19/2008 10:28 PM CDT 04/19/2008 10:28 PM CDT Physician Ed CHEMISTRY ORDERABLES Final Resul t Performing Organization Address [facility] Phone Number INTERFACE SYSTEM Refer to clinic/hospital department [facility] CLIA# [id number] [address] [place] [address] * (ABNORMAL) URINALYSIS MICROSCOPY ONLY (04/19/2008 9:01 PM CDT) RBC UA 11-15(A) 0 - 2 [facility] HYALINE CAST None Seen 0 - 2 [facility] BACTERIA UA Few(A) None Seen [facility] WBC URINE 0-2 0 - 2 [facility] Urine specimen (specimen) 04/19/2008 9:01 PM CDT 04/19/2008 9:08 PM CDT Narrative INTERFACE SYSTEM - 04/19/2008 9:24 PM CDT Microscopic ordered by policy Physician Sj Ed URINE ORDERABLES Final Result Performing Organization Address [facility] Phone Number INTERFACE SYSTEM Refer to clinic/hospital department [facility] CLIA# [id number] [address] [place] [address] * (ABNORMAL) URINALYSIS (04/19/2008 9:01 PM CDT) COLOR UA Yellow Straw [facility] PROTEIN UA NEGATIVE NEGATIVE [facility] BLOOD UA Large(A) NEGATIVE [facility] NITRITE UA NEGATIVE NEGATIVE [facility] UROBILINOGEN UA 1.0(A) 0.2 [facility] CLARITY UA SL CLOUDY Clear [facility] SPECIFIC GRAVITY UA 1.015 <=1.005 [facility] GLUCOSE UA NEGATIVE NEGATIVE [facility] PH UA 7.0 5.0 - 9.0 [facility] BILIRUBIN UA NEGATIVE NEGATIVE [facility] LEUKOCYTE ESTERASE UA NEGATIVE NEGATIVE [facility] KETONES UA NEGATIVE NEGATIVE [facility] MICRO EXAM Yes(A) No [facility] Urine specimen (specimen) 04/19/2008 9:01 PM CDT 04/19/2008 9:08 PM CDT Physician Sj Ed URINE ORDERABLES Final Result Performing Organization Address [facility] Phone Number INTERFACE SYSTEM Refer to clinic/hospital department [facility] CLIA# [id number] [address] [place] [address] documented in this encounter Visit Diagnoses Diagnosis Bipolar I disorder, most recent episode (or current) depressed, unspecified (CMS/HCC) Bipolar I disorder, most recent episode (or current) depressed, unspecified Calculus of kidney Tobacco use disorder Encounter for long-term (current) use of other medications documented in this encounter
[2025-05-27 02:01] VITALS: BP 139/88; PULSE 86; RESP 18; TEMP 36.6; O2SAT 97; BMI 31.6
[2025-05-27] MEDS: tetracaine 0.5% Op Soln 4 mL Btl 1 DROP EYE-BOTH (03:05)
--- NOTE | 2025-05-27 03:42 | W.ED.GENADLT ---
HPI - General Adult General: Chief complaint: Eye Problems Stated complaint: Flash burn in eye from welding Time Seen by Provider: 05/27/25 02:59 History of Present Illness: Patient is a 39-year-old male present with a chief complaint of waking up with bilateral arm pain. 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 Patient states he has had this before. He denies vision changes but he is experiencing severe photophobia and eye tearing. Patient denies any trauma to the eye. No fever, periorbital edema or erythema. Related Data Previous Rx's ?Medication ?Instructions ?Recorded ibuprofen 800 mg tablet 800 mg PO Q8H PRN pain #45 tabs 11/28/23 mupirocin 2 % topical ointment 1 applic topical TID #22 grams 11/28/23 testosterone cypionate 100 mg/mL 100 mg IM .q 14 days low 05/27/24 intramuscular oil testosterone #10 mL (Depo-Testosterone) buprenorphine 8 mg-naloxone 2 mg 1 tab sublingual BID #60 tabs 05/06/25 sublingual tablet duloxetine 30 mg capsule,delayed 30 mg PO DAILY #30 caps 05/06/25 release risperidone 0.5 mg tablet 0.5 mg PO BID #60 tabs 05/06/25 (Risperdal) erythromycin 5 mg/gram (0.5 %) eye 1 applic ophthalmic (eye) QID 5 05/27/25 ointment (3.5 gram tube) days #3.5 grams ketorolac 10 mg tablet 10 mg PO Q6H PRN pain 5 days #20 05/27/25 tabs Allergies Allergy/AdvReac Type Severity Reaction Status Date / Time topiramate (From Topamax) AdvReac Intermediate Numbness Verified 05/27/25 02:03 in face. [facility] PFS: Medical History (Updated 05/27/25 @ 03:50 by Patt Pinto MD) Retained foreign body of foot Testosterone deficiency in male Erectile dysfunction Polysubstance dependence Past history of heroin, methamphetamine, cocaine, cannabis, smoking, and alcohol abuse Headache with remote history of traumatic head injury Psychiatric care Low back pain associated with a spinal disorder other than radiculopathy or spinal stenosis Anxiety and depression Varicocele Smoker unmotivated to quit 1.5 ppd since age 16 Asthma Cervical radicular pain Surgical History History of open reduction and internal fixation (ORIF) procedure right femur History of hand surgery right 2015 History of esophagogastroduodenoscopy (EGD) (~05/2020) History of surgery on upper extremity History of surgery on extremity Family History Other Cancer Diabetes Heart disease Hypertension Psychiatric illness Social History Smoking and tobacco/nicotine status: current every day tobacco/nicotine user cigarettes Packs smoked per day: 1.5 Years cigarettes smoked: 14 Alcohol intake: current Alcohol intake frequency: few times a week Substance/Drug Use: never Marital status: Number of children: 7 Current occupational status: employed Current occupation: Medication Aide Current gender identity: Male Physical Exam Narrative: EXAM NARRATIVE: Vital signs were reviewed. Patient is alert and oriented. Patient is breathing comfortably, no increased WOB or accessory muscle use. SpO2 is above 95% on RA. No hypotension or tachycardia. Patient is moving all extremities, no deformity or gross injury. Ocular exam: PERRL, EOMI. Conjunctiva are injected. No periorbital edema. Patient does not have any significant uptake w/ luorescein stain. Course Vital Signs: Vital signs: Vital Signs Temperature 98 F 05/27/25 02:01 Pulse Rate 86 05/27/25 02:01 Respiratory Rate 18 05/27/25 02:01 Blood Pressure 139/88 05/27/25 02:01 Pulse Oximetry 97 05/27/25 02:01 [facility] - General Adult Medical Decision Making 39-year-old male with a chief complaint of bilateral eye pain upon waking this evening. Patient is a master welder and states this feels similar to previous Welders flash. Differential diagnose includes, is limited to, Welders flash, corneal abrasion, corneal ulcer, conjunctivitis, other. On exam patient is here medically stable. Patient has photophobia, increased tearing and conjunctival injection but no significant uptake with fluorescein stain. His symptoms are relieved significantly with tetracaine. Presentation is most consistent with Welders flash. Patient was given IM dose of Toradol, p.o. dose of oxycodone and erythromycin ointment. Patient was counseled on supportive care at home, given return precautions and discharged in stable condition with recommendation for outpatient follow-up with primary care nurse or doctor. No radiology studies performed this visit Discharge Plan Discharge Patient Disposition: Home Clinical Impression: Medication Aide's flash of both eyes Condition: Stable Prescriptions: New ketorolac 10 mg tablet 10 mg PO Q6H PRN (Reason: pain) 5 Days Qty: 20 0RF erythromycin 5 mg/gram (0.5 %) ointment 1 applic ophthalmic (eye) QID 5 Days Qty: 3.5 0RF Rx Instructions: apply to b/l eyes No Action mupirocin 2 % ointment 1 applic topical TID Qty: 22 0RF ibuprofen 800 mg tablet 800 mg PO Q8H PRN (Reason: pain) Qty: 45 0RF buprenorphine-naloxone 8-2 mg tablet, sublingual 1 tab sublingual BID Qty: 60 2RF duloxetine 30 mg capsule,delayed release(DR/EC) 30 mg PO DAILY Qty: 30 11RF risperidone [Risperdal] 0.5 mg tablet 0.5 mg PO BID Qty: 60 11RF testosterone cypionate [Depo-Testosterone] 100 mg/mL oil 100 mg IM .q 14 days Qty: 10 0RF Discharge Orders: Discharge ED (Routine); Ordered 05/27/25 Ordered By: Patt Pinto Referrals: Walter Farrell MD [Primary Care Provider, Family Practice] Patient Instructions: Opioid Safety, Pain Management, Patient Portal & Phyllis Instructions, Photophobia (ED) Activity Restrictions/Additional Instructions: Take 10 mg of Toradol and 500 to 1000 mg of Tylenol every 6 hours for pain. Please use prescribed ointment 5 times per day. If your condition worsens or additional concerns arise, please return to the emergency department for reassessment. Please follow-up with an eye doctor by Friday. Print Language: Welsh Coding Level of Care Code ED Champion Of [employer] for [place]
[2025-05-27] MEDS: erythromycin Op Oint 1 gm 1 APPLIC EYE-BOTH (03:55)
[2025-05-27] MEDS: oxyCODONE 5 mg IR Tab/Cap PO (03:55)
== END 2025-05-27 04:29 | disposition home or self-care (01) ==
PROVIDERS: Emergency Provider Emergency Medicine; PCP Family Medicine Adult Medicine
DX: H16.133 Photokeratitis, bilateral (principal); F17.210 Nicotine dependence, cigarettes, uncomplicated
CPT/HCPCS: 96372; 99284; J1885; J9999